=== PATIENT | male | born 1945 | race Caucasian/White ===

== ENCOUNTER 2017-08-19 15:10 | Observation (INO) | payer MEDICARE, SELFPAY ==
[2017-08-19] VITALS (10 sets, daily range): BP systolic 124–154; BP diastolic 58–94; PULSE 74–100; RESP 18–20; TEMP 36.4–37.6; O2SAT 95–100; BMI 20.9
[2017-08-19 12:26] LABS: Bedside Glucose 322 mg/dL (70-110)
--- NOTE | 2017-08-19 13:55 | RAD_ITS ---
STUDY: X-RAY - RIGHT KNEE REASON FOR EXAM: Male, 71 years old. ORIF of patellar fracture TECHNIQUE: 8 view(s) of the knee. COMPARISON: None. FINDINGS: Intraoperative fluoroscopy identifies 2 osseous screws traversing horizontal fracture of the mid pole of the patella. No evidence of hardware failure or loosening. K wires have been placed as well. RAD/Knee 1 or 2 Views IMPRESSION: As above Electronically Signed: Faustino Murry DO at 15:26 EST Tel , Service support ,
[2017-08-19 13:56] LABS: Bedside Glucose 271 mg/dL (70-110)
[2017-08-19] MEDS: Cefazolin 1 GM/50 ML BAG IV ×2 (14:17→21:45)
--- NOTE | 2017-08-19 15:22 | OP.PCM_ITS ---
Report of Operation Date of Procedure: 08/19/17 Pre-Operative Diagnosis: patella fracture right. failure of fixation right patella Post-Operative Diagnosis: same Surgery/Procedure Performed:: revision ORIF right patella Description of Surgical Findings:: Failure of screw fixation right patella Type of Anesthesia:: Spinal Anesthesiologist: Sahil Mallory Estimated Blood Loss (mL): 100 Fluids Replaced: see anesthesia report Description of Procedure: Surgical indications: Suresh had open reduction internal fixation of his patella approximately 2 weeks ago. This was identified to have failed at his first postop visit. Because of the amount displacement this does require revision Implants: Arthrex 4.5 mm cannulated screws ?2 with washer, 1.6 mm K wire ?2, fiber tape ?2 Procedure description: Suresh's greeted in the preoperative area. His right knee was marked with surgical marker. He was then taken or [address]. After adequate anesthesia was obtained and airway was secured and antibiotics were administered a well-padded tourniquet was placed in patient's right lower extremity. The leg was then prepped and draped in usual sterile fashion Surgical timeout was performed and surgery was commenced. Patient's previous incision site was utilized. Dissection was then carried length of the incision and the patella was easily identified. The transverse fracture had failed and this was gapped approximately 2 cm. Using fluoroscopic imaging I reviewed moved both of the previous implanted screws without difficulty. At this point I then cleaned the fibrous tissue and hematoma from the fracture site. This was then irrigated. A point of reduction fracture tenaculum was then applied to the inferior and superior pole of the patella and the patella was then reduced. This was confirmed to be reduced on AP and lateral with fluoroscopic imaging. Once this was reduced to guide pins were then placed in the patella in a retrograde fashion. Appropriate length screws were then opened. For some additional compression and because of the bones poor quality I did decide to use washers and to partially-threaded screws were then advanced across the fracture site. Through these screws I then placed a fiber tape in a figure-of- eight type fashion this was then tied to create a tension band type construct. Because of the previous failure of this construct I then replaced the 2 K wires. They were bent at the inferior pole of the patella and trimmed. I then used an additional fiber tape passed this beneath the K wires and the patellar tendon inferiorly and beneath the K wires and quadriceps tendon superiorly in a [id number] type fashion for additional tension band fixation. Once this was complete final imaging was obtained both AP and lateral. The knee was then irrigated the wound was irrigated and closed in layers. Surgical pedro were placed in the skin. A silver impregnated dressing was applied. Patient was taken to the recovery room in stable condition. Will maintain knee immobilizer and weightbearing as tolerated on the right lower extremity with the knee locked in extension within the immobilizer. The knee immobilizer may be removed for hygiene purposes only. I do not want him doing any type of passive active assistive or active range of motion of the knee. Will allow him to bend from 0-30? at 2 weeks increasing this to 0-60? 4 weeks and progressively increasing that by 10? weekly after that point if the fracture is stable - Complications none known - Admit VTE Documentation VTE Present on Admission: Yes VTE Mechan Device Prophylaxis: SCD's, Thigh High DEAN Hose VTE Pharm Prophylaxis ordered?: Yes
[2017-08-19 15:35] LABS: Bedside Glucose 189 mg/dL (70-110)
[2017-08-19] MEDS: Calcium Carbonate 500 MG Tablet 1000 MG PO (17:44)
[2017-08-19 17:46] LABS: Bedside Glucose 169 mg/dL (70-110)
[2017-08-19] MEDS: Lactated Ringers 1,000 ML 100 ML IV ×2 (18:39→20:27)
[2017-08-19] MEDS: Acetaminophen 325 MG Tablet 650 MG PO (18:45)
[2017-08-19] MEDS: Atorvastatin Calcium 10 MG Tablet PO (21:44)
[2017-08-19 21:50] LABS: Bedside Glucose 90 mg/dL (70-110)
[2017-08-19] MEDS: oxyCODONE 5 MG Tablet PO (21:52)
[2017-08-20 02:48] VITALS: BP 139/70; PULSE 91; RESP 18; TEMP 37.4; O2SAT 98
[2017-08-20] MEDS: Levothyroxine 25 MCG TABLET PO (05:47)
[2017-08-20] MEDS: Cefazolin 1 GM/50 ML BAG IV (05:47)
[2017-08-20] MEDS: Acetaminophen 325 MG Tablet 650 MG PO ×3 (05:47→18:44)
[2017-08-20 06:04] VITALS: TEMP 37.1
--- NOTE | 2017-08-20 06:05 | NURSING ---
pt's forehead clammy. Blood sugar checked and temperature checked. pt states he feels ok. will continue to monitor
[2017-08-20 06:10] LABS: Bedside Glucose 354 mg/dL (70-110)
[2017-08-20] MEDS: Calcium Carbonate 500 MG Tablet 1000 MG PO ×3 (07:48→17:21)
[2017-08-20] MEDS: Aspirin 81 MG TAB.CHEW PO (07:49)
[2017-08-20 08:00] VITALS: BP 138/60; PULSE 94; RESP 18; TEMP 37.1; O2SAT 97
--- NOTE | 2017-08-20 08:13 | PN.ORTHO_ITS ---
Subjective: Patient sitting up in bed eating breakfast. Patient states pain is well- managed. Patient denies chest pain, shortness breath, calf pain, nausea vomiting. Objective: Dressing is clean dry intact. Patient has a large closed decubitus ulcer on the heel of his right leg. A padded dressing was placed intraoperatively. This area was not erythematous. Patient's vitals labs within normal limits. Neurovascular is intact, afebrile. Negative signs and symptoms of DVT. - Physical Exam Oral: Moist Mucosa Neurological: Cranial nerves II-XII grossly intact Psych/Mental Status: Normal Affect Vital Signs Temp Pulse Resp BP Pulse Ox 98.8 F 91 18 139/70 H 98 08/20/17 06:04 08/20/17 02:48 08/20/17 02:48 08/20/17 02:48 08/20/17 02:48 Oxygen Delivery Method Room Air Weight: 70.307 kg Body Mass Index (BMI) 20.9 Finger Stick Blood Glucose 189 Intake and Output for Last 24 Hours 08/18/17 08/19/17 08/20/17 23:59 23:59 23:59 Intake Total 1600 / 1600 1910 / 1910 Output Total 1425 / 1425 Balance 1600 / 1600 485 / 485 POC Glucose 08/20/17 08/19/17 08/19/17 06:03 21:43 17:39 POC Glucose 354 H 90 169 H 08/19/17 08/19/17 08/19/17 15:33 13:48 12:23 POC Glucose 189 H 271 H 322 H Assessment/Plan Status post revision ORIF patella fracture Closed decubitus ulcer to the right heel Plan 1. Continue all pain medications as prescribed 2. Patient can toe-touch weight-bear with knee immobilizer in place with walker. 3. Xarelto as prescribed with aspirin 85 mg as prescribed for postop DVT prophylaxis 4. Encourage incentive spirometry 5. Possible discharge tomorrow to extended-care facility 6. Consult wound management for eval and treatment of decubitus ulcer on right heel
[2017-08-20 08:16] LABS: Bedside Glucose 394 mg/dL (70-110)
--- NOTE | 2017-08-20 10:11 | NURSING ---
wound photo: right heel
[2017-08-20] MEDS: Ascorbic Acid 500 MG Tablet PO (11:09)
--- NOTE | 2017-08-20 11:09 | CASEMGMT ---
Social Work Note Updated by PT - Salud - that pt's daughter was anxious about discharge planning from [facility] and was requesting to speak with SW. Face to face with the pt's daughter, Pao. Pt pleasant and sitting up in chair. Pao is sitting across from him and presents with a very anxious demeanor as evidenced by quick speech and fidgeting. States that she is unsure about payment after Medicare no longer covers. Inform that once his initial 20 days are up there is a $164.50 co-pay/day. Pao expresses understanding. Explain that at that point they would need to decide to privately pay that co-pay, apply for Medicaid, or return home with home health care. Pao states that the pt already has Medicaid and explain that no he does not he has Medicare. She states that she believes he makes too much. Explain to Pao that community Medicaid and SNF Medicaid are different and so are there income requirements. Inform that ultimately if he makes too much or has too many assets he will be paying some out of pocket, but then Medicaid covers the rest. Pao inquires how they apply, and provides her with an application. Once completed they will return to to submit to [facility]. Explain that it would not be fully processed for 4-6 weeks, but there would likely be a pending number within the next few days and that is billable by the correction. Understanding expressed. Pt and Pao made aware that SW is available if additional needs arise. Will continue to follow and assist with discharge planning. Carola Cam, HOWIE MCDONALDW
[2017-08-20] MEDS: Polyethylene Glycol 3350 17 GM PACKET PO (11:10)
[2017-08-20] MEDS: Rivaroxaban 10 MG Tablet PO (11:11)
[2017-08-20 12:26] LABS: Bedside Glucose 353 mg/dL (70-110)
[2017-08-20] MEDS: Glucerna Shake 120 ML LIQUID PO ×3 (14:26→21:36)
[2017-08-20 14:30] VITALS: BP 121/74; PULSE 92; RESP 20; TEMP 36.6; O2SAT 98
[2017-08-20] MEDS: oxyCODONE 5 MG Tablet PO ×2 (14:39→21:35)
--- NOTE | 2017-08-20 16:25 | CASEMGMT ---
This RN CM called and reviewed JONES with patient's POA Anusha Gonzalez. Daughter voices understanding and telephone consent given. Original filed on chart, copy along with MCR inpatient vs observation to patient at this time.
[2017-08-20 16:51] LABS: Bedside Glucose 272 mg/dL (70-110)
[2017-08-20] MEDS: Ondansetron 4 MG/2 ML Vial IV (17:41)
[2017-08-20] MEDS: 0.9% NaCl Peripheral Flush Adult/Peds IV (17:41)
[2017-08-20 20:53] VITALS: BP 123/61; PULSE 90; RESP 16; TEMP 36.7; O2SAT 97
[2017-08-20] MEDS: Atorvastatin Calcium 10 MG Tablet PO (21:35)
[2017-08-20 21:46] LABS: Bedside Glucose 131 mg/dL (70-110)
[2017-08-20] MEDS: Docusate Sodium 100 MG Capsule PO (23:17)
[2017-08-21 02:26] VITALS: BP 131/73; PULSE 85; RESP 18; TEMP 36.8; O2SAT 95
[2017-08-21] MEDS: Levothyroxine 25 MCG TABLET PO (06:35)
[2017-08-21 06:46] LABS: Bedside Glucose 415 mg/dL (70-110)
[2017-08-21] MEDS: Ascorbic Acid 500 MG Tablet PO (09:59)
[2017-08-21 10:00] VITALS: BP 133/54; PULSE 94; RESP 18; TEMP 37.2; O2SAT 99
[2017-08-21] MEDS: Rivaroxaban 10 MG Tablet PO (10:00)
[2017-08-21] MEDS: Aspirin 81 MG TAB.CHEW PO (10:00)
[2017-08-21] MEDS: Polyethylene Glycol 3350 17 GM PACKET PO (10:00)
[2017-08-21] MEDS: Acetaminophen 325 MG Tablet 650 MG PO ×2 (10:11→16:50)
[2017-08-21] MEDS: Docusate Sodium 100 MG Capsule PO (10:11)
[2017-08-21] MEDS: Glucerna Shake 120 ML LIQUID PO ×4 (10:16→22:30)
[2017-08-21 10:56] LABS: Bedside Glucose 390 mg/dL (70-110)
--- NOTE | 2017-08-21 11:26 | CASEMGMT ---
Social Work Note Found Medicaid application on pt's chart. Faxed to [facility] with notification that pt is residing at [facility] and has approximately 7 days left under Medicare. Original provided to family, copy placed on chart and copy placed in SNF packet. SW to continue to follow and assist with discharge planning. Carola Cam, STATEMENT PROCESSOR, STABLE HELPER
[2017-08-21 12:26] LABS: Bedside Glucose 387 mg/dL (70-110)
[2017-08-21] MEDS: oxyCODONE 5 MG Tablet PO (12:34)
--- NOTE | 2017-08-21 14:10 | RAD_ITS ---
STUDY: X-RAY CHEST REASON FOR EXAM: Male, 71 years old. Shortness of breath. Recent surgery. TECHNIQUE: AP and lateral views of the chest. COMPARISON: Comparison is made with prior study dated July 03, 2013. FINDINGS: Hyperinflation. Decreased bronchovascular markings suggestive of emphysematous changes. No acute abnormality is seen. There is no demonstrated pleural abnormality. Sternal cerclage wires are present from a prior sternotomy. Normal mediastinum and louise. Normal visualized pulmonary arteries. There is atherosclerotic calcification of the aortic arch with tortuosity. There are diffuse degenerative changes of the visualized thoracic spine. Status post ORIF of the proximal right humerus. There is no demonstrated abnormality of the visualized soft tissue structures of the upper abdomen. RAD/Chest PA and Lateral IMPRESSION: Hyperinflation. The lungs are clear. Electronically Signed: Harry Guo MD at 14:58 EST Tel [phone], Service support ,
--- NOTE | 2017-08-21 14:10 | EKG12_ITS ---
Test Reason : SOB Blood Pressure : / mmHG Vent. Rate : 083 BPM Atrial Rate : 083 BPM P-R Int : 130 ms QRS Dur : 088 ms QT Int : 428 ms P-R-T Axes : 070 -17 073 degrees QTc Int : 502 ms Normal sinus rhythm Prolonged QT Abnormal ECG Confirmed by DELMY ALVAREZ, JENNY ([id number]), editor department VANESA KOO ([id number]) on 09/02/2017 2:15:34 PM Referred By: Christiano Dorman Confirmed By:JENNY BROCK MD
--- NOTE | 2017-08-21 14:10 | PCM.PN.ORT ---
Subjective: Patient sitting up in bed alert oriented, daughter at her side. Patient states he hurts all over. And does not feel well. Patient denies chest pain shortness of breath. Patient denies any calf pain, however his severe neuropathy of the lower extremities with paresthesias. Objective: Patient sitting up in bed with no obvious respiratory distress, however, patient is taking deep blowing breaths. Patient is a phasic per his norm. Patient has a week a palpable radial pulse, was within normal limits, patient is a 98-99% pulse ox room air. Patient's dressing is clean dry and intact. Patient's glucose has been 350 72+400 today. - Physical Exam General: Alert, Oriented x3 HEENT: PERRLA Oral: Moist Mucosa Psych/Mental Status: Alert and oriented to time, place, person, mood and affect Vital Signs Temp Pulse Resp BP Pulse Ox 98.9 F 94 18 133/54 H 99 08/21/17 10:00 08/21/17 10:00 08/21/17 10:00 08/21/17 10:00 08/21/17 10:00 Oxygen Delivery Method Room Air Weight: 70.3 kg Body Mass Index (BMI) 20.9 Finger Stick Blood Glucose 189 Intake and Output for Last 24 Hours 08/19/17 08/20/17 08/21/17 23:59 23:59 23:59 Intake Total 1600 / 1600 2610 / 2610 950 / 950 Output Total 2325 / 2325 1175 / 1175 Balance 1600 / 1600 285 / 285 -225 / -225 POC Glucose 08/21/17 08/21/17 08/21/17 11:43 09:52 06:39 POC Glucose 387 H 390 H 415 H 08/20/17 08/20/17 21:34 16:43 POC Glucose 131 H 272 H Assessment/Plan Status post revision ORIF patella fracture Closed decubitus ulcer to the right heel Hyperglycemia Plan 1. Continue all pain medications as prescribed 2. Patient can toe-touch weight-bear with knee immobilizer in place with walker. 3. Xarelto as prescribed with aspirin 85 mg as prescribed for postop DVT prophylaxis 4. Encourage incentive spirometry 5. Possible discharge tomorrow to extended-care facility 6. Consult wound management for eval and treatment of decubitus ulcer on right heel 7. Medicine consult, for medical evaluation of hyperglycemia.
[2017-08-21 15:05] LABS: International Normalized Ratio 1.6; Prothrombin Time (Protime)PT. 18.1 SECONDS (11.7-14.9)
[2017-08-21 15:25] LABS: Absolute Lymphocyte Count 1.68 X10^3/ul (0.83-4.51); Absolute Neutrophil Count 9.4 X10^3/uL (2.0-7.7); Basophil# 0.03 X10^3/uL; Basophil% 0.2 % (0-1); Eosinophil# 0.06 X10^3/uL; Eosinophils% 0.5 % (0-5); Hematocrit 34.8 % (40-54); Hemoglobin 11.1 g/dl (13.0-16.5); Lymphocyte # 1.68 X10^3/ul (4.0); Lymphocyte % 13.7 % (19-41); Mean Corp Hgb Conc 31.9 g/gl (32-36); Mean Corpuscular Hgb 30.2 pg (27.0-32.0); Mean Corpuscular Volume 94.8 fL (80-94); Mean Platelet Vol. 8.8 fl (6.2-12.0); Monocyte# 1.03 X10^3/uL; Monocyte% 8.4 % (0-10); Platelet Count 586 K/mm3 (150-450); RBC Distribution Width CV 13.3 % (11.6-14.6); RBC Distribution Width SD 45.4 fl (35.1-43.9); Red Blood Count 3.67 M/mm3 (4.6-6.2); White Blood Count 12.2 K/mm3 (4.4-11.0)
[2017-08-21 15:26] LABS: POSITIVE COUNT NO; POSITIVE DIFFERENTIAL NO; POSITIVE MORPHOLOGY NO
[2017-08-21 15:30] VITALS: BP 116/52; PULSE 76; RESP 18; TEMP 36.7; O2SAT 97
[2017-08-21 15:36] LABS: ALB/GLOB Ratio 0.7 RATIO (0.9-2.4); AST(SGOT) 7 U/L (15-37); Alanine Aminotransfer ALT/SGPT 12 U/L (16-61); Albumin, Serum 2.9 g/dL (3.2-5.0); Alkaline Phosphatase 191 U/L (45-117); Anion Gap 10 (5-15); BUN 23 mg/dL (7-18); BUN/Creat Ratio 28.1 RATIO (10-20); Calcium,Total 8.4 mg/dL (8.5-10.1); Chloride 103 mmol/L (98-107); Creatinine, Serum 0.82 mg/dL (0.70-1.30); EST Glomerular Filtration Rate 99 mL/min (>60); Est Glom Filt Rate - Afr Amer 120 mL/min (>60); Estimated Creatinine Clearance 84.54 ml/min; Glucose 254 mg/dL (70-110); Magnesium 2.2 mg/dL (1.6-2.6); Potassium 4.4 mmol/L (3.5-5.1); Protein, Total 6.9 g/dL (6.4-8.2); Sodium Level 137 mmol/L (136-145)
[2017-08-21 16:02] VITALS: PULSE 80; RESP 18
[2017-08-21 16:02] LABS: CPK Total, Creatine Kinase 49 U/L (39-308)
[2017-08-21] MEDS: Ipratropium/Albuterol Sulfate 3 ML AMPUL.NEB INHALATION ×2 (16:02→19:10)
[2017-08-21] MEDS: Calcium Carbonate 500 MG Tablet 1000 MG PO (16:48)
[2017-08-21 16:56] LABS: Bedside Glucose 220 mg/dL (70-110)
[2017-08-21 17:16] LABS: Bedside Glucose 333 mg/dL (70-110)
--- NOTE | 2017-08-21 18:01 | CON.PCM_ITS ---
Problem List (1) Shortness of breath Status: Acute (2) Diabetes mellitus type 2 with complications, uncontrolled Status: Chronic (3) Diabetic neuropathy Status: Chronic (4) Right patella fracture Status: Acute (5) Right humeral fracture Status: Acute (6) CAD (coronary artery disease) Status: Chronic Comment: expressive aphasia (7) CVA, old, aphasia Status: Chronic (8) Constipation Status: Chronic Reason for Consult Date of Consultation: 08/21/17 Reason for Consultation: shortness of breath and hyperglycemia History of Present Illness: The patient is a 71 year old M with multiple comorbidities including diabetes mellitus type 2 complicated with bilateral lower extremity peripheral neuropathy , old ischemic stroke with residual aphasia about 11 years ago, coronary artery disease status post CABG and chronic constipation was admitted for revision for patella fracture. Earlier, patient had right patella fracture and right humerus fracture status on 08/02/2017 post ORIF on 08/04/2017 was sent to rehab but readmitted for recurrence of patella fracture. This time patient had revision of patella ORIF done. I was called in the morning for shortness of breath and hypoglycemia. Patient has history of about 40 packs years of smoking. He does not have diagnosis of COPD and not on inhalers. Basic lab tests, EKG, troponin and chest x-ray was ordered in the morning. Chest x-ray shows hyperinflation and decreased bronchovascular markings suggestive of emphysematous changes. EKG shows normal sinus rhythm with prolonged QTC 502 ms but no significant change from previous EKG on August 02, 2017. Patient denied chest pain. Accu-Cheks blood sugar was in high 300s-400s. In afternoon, patient is not short of breath. Denies chest pain. Past Medical History Past Medical History (Chronic Problems): Chronic Problems CAD (coronary artery disease) (Chronic) expressive aphasia CVA, old, aphasia (Chronic) Constipation (Chronic) Diabetes mellitus type 2 with complications, uncontrolled (Chronic) Diabetic neuropathy (Chronic) Allergies No Known Allergies Allergy (Verified 08/16/17 11:22) Home Medications: Ambulatory Orders Medication Instructions Recorded Aspirin [Aspirin, Baby] 81 mg PO DAILY@0800 08/02/17 Atorvastatin Calcium [Lipitor] 10 mg PO QHS 08/02/17 Calcium Carbonate [Tums] 1,000 mg PO TIDCM 08/02/17 Insulin Aspart [Novolog Flexpen] 15 units SC LUNCH 08/02/17 Insulin Aspart [Novolog Flexpen] 20 units SC BREAKFAST 08/02/17 Insulin Aspart [Novolog Flexpen] 35 units SC DINNER 08/02/17 Insulin Detemir [Levemir FlexPen] 20 mg SQ BID 08/02/17 Levothyroxine [Synthroid] 25 mcg PO DAILY 08/02/17 Acetaminophen [Tylenol Tablet] 650 mg PO Q6H PRN PRN tablet 08/06/17 Oxycodone HCl/Acetaminophen 1 tab PO Q6H PRN PRN #30 tab 08/06/17 [Percocet 10-325 mg Tablet] Polyethylene Glycol 3350 [Miralax] 17 gm PO DAILY packet 08/06/17 Rivaroxaban [Xarelto] 10 mg PO DAILY #14 tab 08/06/17 Arginine/Ascorbate Sod/Yan AC 1 each PO DAILY 08/16/17 [Arginaid Powder] Ascorbic Acid [Vitamin C] 500 mg PO DAILY 08/16/17 Zinc Gluconate [Zinc] 40 mg PO DAILY 08/16/17 Surgical History: coronary bypass surgery, - - penile implant Psychiatric History: No pertinent psych hx Smoking Status: Former smoker - *Family History Maternal History Items: Stroke Paternal History Items: Heart Disease Review of Systems Constitutional: Denies: Chills, Fever, Weight Change HEENT: Denies: Head Aches, Sinus Congestion, Sinus Drainage Cardiovascular: Denies: Chest Pain, Palpitations Respiratory: Reports: Shortness of Breath. Denies: Cough, Shortness of breath at rest, Sputum production Gastrointestinal: Denies: Abdominal Pain, Nausea, Vomiting Genitourinary: Denies: Dysuria Musculoskeletal: Reports: Joint Pain, Joint swelling, Joint Tenderness Skin: Denies: Rash, Wounds Neurological: Reports: Balance problems. Denies: Focal weakness, Numbness, Tingling Psychiatric: Denies: Anxiety, Depression, Homicidal Ideations, Suicidal Ideations Hematologic/ Lymphatic: Denies: Easy Bruising, Easy Bleeding Patient Problems: Active and Suspected Problems Shortness of breath (Acute) - Physical Exam General: Alert, Oriented x3, Cooperative HEENT: Atraumatic, PERRLA, EOMI, Normocephalic Neck: Supple, No JVD, Negative Carotid Bruits Lungs: No rhonchi, No wheeze, No rales, Diminished - Diffuse decrease in air entry bilateral Cardiovascular: Regular rate, Regular Rhythm, Normal S1, Normal S2, Murmur - Colic murmur present over aortic valve and LLSB, - - CABG scar Abdomen: Bowel Sounds Present, Soft, Non Tender, Non-Distended Extremities: No edema, Capillary Refill Less than 3 Seconds Skin: Ulcer/ Wound - Eschar present over left heel, suggestive of unstageable decubitus ulcer Musculoskeletal: Arthritic Changes, - - Right patella under bandage. Right upper arm surgical wound healthy. No discharge Neurological: Cranial nerves II-XII grossly intact Psych/Mental Status: Normal Affect, Appropriate Vital Signs Temp Pulse Resp BP Pulse Ox 98.1 F 80 18 116/52 L 97 08/21/17 15:30 08/21/17 16:02 08/21/17 16:02 08/21/17 15:30 08/21/17 15:30 Oxygen Delivery Method Room Air Weight: 154 lb 15.759 oz Body Mass Index (BMI) 20.9 Finger Stick Blood Glucose 189 Intake and Output for Last 24 Hours 08/19/17 08/20/17 08/21/17 23:59 23:59 23:59 Intake Total 1600 / 1600 2610 / 2610 950 / 950 Output Total 2325 / 2325 1175 / 1175 Balance 1600 / 1600 285 / 285 -225 / -225 Laboratory Tests Past 24 Hrs 08/21/17 08/21/17 08/21/17 14:46 14:46 14:46 WBC 12.2 H RBC 3.67 L Hgb 11.1 L Hct 34.8 L MCV 94.8 H MCH 30.2 MCHC 31.9 L RDW 13.3 RDW Differential 45.4 H Plt Count 586 H MPV 8.8 Immature Gran % (Auto) 0.200 Neut % (Auto) 77.0 H Lymph % (Auto) 13.7 L [place] % (Auto) 8.4 Eos % (Auto) 0.5 Baso % (Auto) 0.2 Absolute Neuts (auto) 9.4 H Absolute Lymphs (auto) 1.68 Total Counted Not Reportable PT 18.1 H INR 1.6 Sodium 137 Potassium 4.4 Chloride 103 Carbon Dioxide 24.0 Anion Gap 10 BUN 23 H Creatinine 0.82 Estim Creat Clear Calc 84.54 Est GFR (MDRD) Af Amer 120 Est GFR (MDRD) Non-Af 99 BUN/Creatinine Ratio 28.1 H Glucose 254 H Calcium 8.4 L Magnesium 2.2 Total Bilirubin 1.00 AST 7 L ALT 12 L Alkaline Phosphatase 191 H Total Creatine Kinase Troponin I < 0.02 Total Protein 6.9 Albumin 2.9 L Globulin 4.0 Albumin/Globulin Ratio 0.7 L 08/21/17 14:46 WBC RBC Hgb Hct MCV MCH MCHC RDW RDW Differential Plt Count MPV Immature Gran % (Auto) Neut % (Auto) Lymph % (Auto) [place] % (Auto) Eos % (Auto) Baso % (Auto) Absolute Neuts (auto) Absolute Lymphs (auto) Total Counted PT INR Sodium Potassium Chloride Carbon Dioxide Anion Gap BUN Creatinine Estim Creat Clear Calc Est GFR (MDRD) Af Amer Est GFR (MDRD) Non-Af BUN/Creatinine Ratio Glucose Calcium Magnesium Total Bilirubin AST ALT Alkaline Phosphatase Total Creatine Kinase 49 Troponin I Total Protein Albumin Globulin Albumin/Globulin Ratio POC Glucose 08/21/17 08/21/17 08/21/17 16:59 15:34 11:43 POC Glucose 333 H 220 H 387 H 08/21/17 08/21/17 08/20/17 09:52 06:39 21:34 POC Glucose 390 H 415 H 131 H Assessment/Plan Active and Suspected Problems Shortness of breath (Acute) The patient is a 71 year old M with multiple comorbidities including diabetes mellitus type 2 complicated with bilateral lower extremity peripheral neuropathy , old ischemic stroke with residual aphasia about 11 years ago, coronary artery disease status post CABG and chronic constipation was admitted for revision for patella fracture. Earlier, patient had right patella fracture and right humerus fracture status on 08/02/2017 post ORIF on 08/04/2017 was sent to rehab but readmitted for recurrence of patella fracture. This time patient had revision of patella ORIF done. I was called in the morning for shortness of breath and hypoglycemia. Patient has history of about 40 packs years of smoking. He does not have diagnosis of COPD and not on inhalers. Basic lab tests, EKG, troponin and chest x-ray was ordered in the morning. Chest x-ray shows hyperinflation and decreased bronchovascular markings suggestive of emphysematous changes. EKG shows normal sinus rhythm with prolonged QTC 502 ms but no significant change from previous EKG on August 02, 2017. Patient denied chest pain. Accu-Cheks blood sugar was in high 300s-400s. In afternoon, patient is not short of breath. Denies chest pain. 1. Acute shortness of breath, etiology unclear but suspect COPD based on x-ray changes: Started on albuterol inhaler as needed and Advair low-dose. Patient will need outpatient PFT to further assess COPD/emphysema. Currently stable not in exacerbation. Patient does not have chest pain. Troponin is normal. EKG no changes. 2. Diabetes mellitus type 2 with hyperglycemia complicated with bilateral lower extremities peripheral neuropathy: Patient Levemir 20 units twice daily and home dose of NovoLog insulin resumed. On Accu-Cheks before meals and at bedtime and cover with NovoLog sliding scale. 3. Revision of right patella fracture status post ORIF and recent right humerus fracture status post ORIF: As per [facility]. On Xarelto 10 mg daily for DVT prophylaxis. 4. Chronic constipation: Patient had hard bowel movement yesterday. Enema ordered. On Dulcolax suppository daily. On oral stool softener Code Visit Inpatient E&M: 99057 Init Hosp L3
[2017-08-21] MEDS: Bisacodyl 10 MG Suppository RECTAL (18:58)
[2017-08-21 19:10] VITALS: PULSE 90; RESP 20
[2017-08-21 19:45] VITALS: BP 122/46; PULSE 107; RESP 20; TEMP 36.4; O2SAT 97
[2017-08-21] MEDS: Atorvastatin Calcium 10 MG Tablet PO (22:31)
[2017-08-21 22:41] LABS: Bedside Glucose 149 mg/dL (70-110)
[2017-08-22 01:45] VITALS: BP 117/50; PULSE 88; RESP 20; TEMP 36.7; O2SAT 95
[2017-08-22 02:47] LABS: Bedside Glucose 91 mg/dL (70-110)
[2017-08-22] MEDS: Levothyroxine 25 MCG TABLET PO (06:16)
[2017-08-22 06:58] VITALS: PULSE 90; RESP 18; O2SAT 97
[2017-08-22] MEDS: Ipratropium/Albuterol Sulfate 3 ML AMPUL.NEB INHALATION ×3 (06:58→15:46)
--- NOTE | 2017-08-22 07:10 | NURSING ---
Pt's blood sugar 75 when checked this AM. Pt refused orange juice so apple juice given and when blood sugar rechecked came back at 133.
[2017-08-22 07:11] LABS: Bedside Glucose 75 mg/dL (70-110)
[2017-08-22 07:11] LABS: Bedside Glucose 133 mg/dL (70-110)
--- NOTE | 2017-08-22 07:26 | PCM.DC.ORTHO ---
Discharge Diet: 1800 Calorie Control Diet Discharge Activity: - - WBAT right leg with knee immobilizer knee immobilizer may be removed for sponge bath but knee remains straight sling for comfort NWB right UE PROM/AROM of right UE ok, no PRE May shower in (days): 1 Ice area for (Minutes): 20 - Ice area for 20 minutes each hour while awake Weight Bearing Status: Weight bearing as tolerated Keep extremity elevated above heart level: Operative Extremity Call your doctor if your incision/area has: Continuous Slow Oozing, Sudden Increased Bleeding, Increased Pain/ Swelling, Increased Redness, Foul Smelling Discharge Call your doctor if you observe: Fever of 101 or Higher, Coldness, Increased Pain, Numbness or Tingling, Change in Color Change Dressing in (Days):: 7 Cleanse incision/area with: Soap & Water Allergies/Adverse Reactions: Allergies No Known Allergies Allergy (Verified 08/16/17 11:22) Medications to take at Discharge Aspirin [Aspirin, Baby] 81 mg PO DAILY@0800 08/02/17 Atorvastatin Calcium [Lipitor] 10 mg PO QHS 08/02/17 Calcium Carbonate [Tums] 1,000 mg PO TIDCM 08/02/17 Insulin Aspart [Novolog Flexpen] 15 units SC LUNCH 08/02/17 Insulin Aspart [Novolog Flexpen] 20 units SC BREAKFAST 08/02/17 Insulin Aspart [Novolog Flexpen] 35 units SC DINNER 08/02/17 Insulin Detemir [Levemir FlexPen] 20 mg SQ BID 08/02/17 Levothyroxine [Synthroid] 25 mcg PO DAILY 08/02/17 Acetaminophen [Tylenol Tablet] 650 mg PO Q6H PRN PRN tablet 08/06/17 Polyethylene Glycol 3350 [Miralax] 17 gm PO DAILY packet 08/06/17 Rivaroxaban [Xarelto] 10 mg PO DAILY #14 tab 08/06/17 Arginine/Ascorbate Sod/Yan AC [Arginaid Powder] 1 each PO DAILY 08/16/17 Ascorbic Acid [Vitamin C] 500 mg PO DAILY 08/16/17 Zinc Gluconate [Zinc] 40 mg PO DAILY 08/16/17 Acetaminophen [Tylenol Tablet] 650 mg PO Q6H PRN PRN tablet 08/22/17 Albuterol Aerosols [Ventolin Aerosols] 2.5 mg INHALATION Q2H PRN PRN vial.neb. 02/01/18 Albuterol Aerosols [Ventolin Aerosols] 2.5 mg INHALATION Q6HWA.RT vial.neb. 08/22/17 Bisacodyl [Dulcolax] 10 mg RECTAL DAILY suppos. 08/22/17 Budesonide Aerosol [Pulmicort Respules] 0.5 mg INHALATION Q12H.RT ampul.neb. 08/22/17 Docusate Sodium [Colace] 100 mg PO BID PRN PRN capsule 08/22/17 Glucerna Shake 120 ml PO 4X/DAY liquid 08/22/17 Insulin Aspart [Novolog Flexpen] See Protocol SC ACHS flexpen 08/22/17 Insulin Detemir [Levemir FlexPen] 20 units SC BID insuln.pen 08/22/17 Ipratropium/Albuterol Sulfate [Duoneb] 3 ml INHALATION Q4HWA.RT ampul.neb 08/22/17 Na Phos,M-B/Na Phos,Di-Ba [Fleet Enema] 1 bottle RECTAL X1 PRN enema 08/22/17 Ondansetron [Zofran] 4 mg IV Q8H PRN PRN vial 08/22/17 Oxycodone [Oxyir] 5 - 10 mg PO Q4H PRN PRN #56 tablet 08/22/17 Zinc Sulfate (50mg elemental) [Zinc Sulfate] 220 mg PO DAILY capsule 08/22/17 The following prescriptions were given: Oxycodone [Oxyir] 5 - 10 mg PO Q4H PRN PRN #56 tablet PRN Reason: Severe Pain (6-10/10) Please Follow Up With: Christiano Dorman DO When: 2 weeks
--- NOTE | 2017-08-22 07:30 | DCINST_ITS ---
Discharge Diet: 1800 Calorie Control Diet Discharge Activity: - - WBAT right leg with knee immobilizer knee immobilizer may be removed for sponge bath but knee remains straight sling for comfort NWB right UE PROM/AROM of right UE ok, no PRE May shower in (days): 1 Ice area for (Minutes): 20 - Ice area for 20 minutes each hour while awake Weight Bearing Status: Weight bearing as tolerated Keep extremity elevated above heart level: Operative Extremity Call your doctor if your incision/area has: Continuous Slow Oozing, Sudden Increased Bleeding, Increased Pain/ Swelling, Increased Redness, Foul Smelling Discharge Call your doctor if you observe: Fever of 101 or Higher, Coldness, Increased Pain, Numbness or Tingling, Change in Color Change Dressing in (Days):: 7 Cleanse incision/area with: Soap & Water Allergies/Adverse Reactions: Allergies No Known Allergies Allergy (Verified 08/16/17 11:22) Medications to take at Discharge Aspirin [Aspirin, Baby] 81 mg PO DAILY@0800 08/02/17 Atorvastatin Calcium [Lipitor] 10 mg PO QHS 08/02/17 Calcium Carbonate [Tums] 1,000 mg PO TIDCM 08/02/17 Insulin Aspart [Novolog Flexpen] 15 units SC LUNCH 08/02/17 Insulin Aspart [Novolog Flexpen] 20 units SC BREAKFAST 08/02/17 Insulin Aspart [Novolog Flexpen] 35 units SC DINNER 08/02/17 Insulin Detemir [Levemir FlexPen] 20 mg SQ BID 08/02/17 Levothyroxine [Synthroid] 25 mcg PO DAILY 08/02/17 Acetaminophen [Tylenol Tablet] 650 mg PO Q6H PRN PRN tablet 08/06/17 Polyethylene Glycol 3350 [Miralax] 17 gm PO DAILY packet 08/06/17 Rivaroxaban [Xarelto] 10 mg PO DAILY #14 tab 08/06/17 Arginine/Ascorbate Sod/Yan AC [Arginaid Powder] 1 each PO DAILY 08/16/17 Ascorbic Acid [Vitamin C] 500 mg PO DAILY 08/16/17 Zinc Gluconate [Zinc] 40 mg PO DAILY 08/16/17 Acetaminophen [Tylenol Tablet] 650 mg PO Q6H PRN PRN tablet 08/22/17 Albuterol Aerosols [Ventolin Aerosols] 2.5 mg INHALATION Q2H PRN PRN vial.neb. 02/01/18 Albuterol Aerosols [Ventolin Aerosols] 2.5 mg INHALATION Q6HWA.RT vial.neb. 08/08 Bisacodyl [Dulcolax] 10 mg RECTAL DAILY suppos. 08/22/17 Budesonide Aerosol [Pulmicort Respules] 0.5 mg INHALATION Q12H.RT ampul.neb. Docusate Sodium [Colace] 100 mg PO BID PRN PRN capsule 08/22/17 Glucerna Shake 120 ml PO 4X/DAY liquid 08/22/17 Insulin Aspart [Novolog Flexpen] See Protocol SC ACHS flexpen 08/22/17 Insulin Detemir [Levemir FlexPen] 20 units SC BID insuln.pen 08/22/17 Ipratropium/Albuterol Sulfate [Duoneb] 3 ml INHALATION Q4HWA.RT ampul.neb 08/22 Na Phos,M-B/Na Phos,Di-Ba [Fleet Enema] 1 bottle RECTAL X1 PRN enema 08/22/17 Ondansetron [Zofran] 4 mg IV Q8H PRN PRN vial 08/22/17 Oxycodone [Oxyir] 5 - 10 mg PO Q4H PRN PRN #56 tablet 08/22/17 Zinc Sulfate (50mg elemental) [Zinc Sulfate] 220 mg PO DAILY capsule 08/22/17 The following prescriptions were given: Oxycodone [Oxyir] 5 - 10 mg PO Q4H PRN PRN #56 tablet PRN Reason: Severe Pain (6-10/10) Please Follow Up With: Christiano Dorman DO When: 2 weeks
--- NOTE | 2017-08-22 07:40 | PCM.DC.BLA ---
Discharge Summary Date of Admission: 08/19/17 Date of Discharge: 08/22/17 Summary: Prior and had revision of his patella fracture. He was initially placed on observation overnight however he developed significant shortness of breath hyperglycemia and difficulty with constipation. He was then admitted to the hospital and hospitalist was consulted. He appears to be doing well and anticipate that point to get him transferred to nursing home facility today. Patient was placed on DVT prophylaxis with mechanical and chemical he was also evaluated by physical and Occupational Therapy. Please see discharge instructions and patient will follow-up with me in office in approximately 2 weeks
[2017-08-22 07:45] VITALS: BP 142/74; PULSE 94; RESP 18; TEMP 36.8; O2SAT 100
[2017-08-22] MEDS: Aspirin 81 MG TAB.CHEW PO (08:18)
[2017-08-22] MEDS: oxyCODONE 5 MG Tablet PO ×2 (08:18→15:32)
[2017-08-22] MEDS: Ascorbic Acid 500 MG Tablet PO (08:19)
[2017-08-22] MEDS: Polyethylene Glycol 3350 17 GM PACKET PO (08:19)
[2017-08-22] MEDS: Calcium Carbonate 500 MG Tablet 1000 MG PO ×2 (08:19→11:29)
[2017-08-22] MEDS: Rivaroxaban 10 MG Tablet PO (08:20)
[2017-08-22] MEDS: Glucerna Shake 120 ML LIQUID PO ×2 (08:26→13:24)
--- NOTE | 2017-08-22 09:38 | PCM.PN.HOSP ---
Patient Problems: Active and Suspected Problems Shortness of breath (Acute) Objective: GENERAL: cooperative HEENT: Clear conjunctiva, NECK; supple, normal thyroid, CHEST: Clear to auscultation bilaterally, HEART: Regular S1 S2, no audible murmurs ABDOMEN: soft, non-tender, normoactive bowel sounds, RECTAL: deferred EXTREMITIES: No edema, no clubbing, no cyanosis. SENIOR HARDWARE DESIGN ENGINEER: Awake, with expressive aphasia SKIN: No rash Vitals/I&O's: Vital Signs Temp Pulse Resp BP Pulse Ox 98.2 F 94 18 142/74 H 100 08/22/17 07:45 08/22/17 07:45 08/22/17 07:45 08/22/17 07:45 08/22/17 07:45 Oxygen Delivery Method Room Air Weight: 70.3 kg Body Mass Index (BMI) 20.9 Finger Stick Blood Glucose 189 Intake and Output for Last 24 Hours 08/20/17 08/21/17 08/22/17 23:59 23:59 23:59 Intake Total 2610 / 2610 1350 / 1350 800 / 800 Output Total 2325 / 2325 1425 / 1425 275 / 275 Balance 285 / 285 -75 / -75 525 / 525 Laboratory Results 08/21/17 09:52: POC Glucose 390 H 08/21/17 11:43: POC Glucose 387 H 08/21/17 14:46: WBC 12.2 H, RBC 3.67 L, Hgb 11.1 L, Hct 34.8 L, MCV 94.8 H, MCH 30.2, MCHC 31.9 L, RDW 13.3, RDW Differential 45.4 H, Plt Count 586 H, MPV 8.8, Immature Gran % (Auto) 0.200, Neut % (Auto) 77.0 H, Lymph % (Auto) 13.7 L, [place] % (Auto) 8.4, Eos % (Auto) 0.5, Baso % (Auto) 0.2, Absolute Neuts (auto) 9.4 H, Absolute Lymphs (auto) 1.68, Total Counted Not Reportable 08/21/17 14:46: Sodium 137, Potassium 4.4, Chloride 103, Carbon Dioxide 24.0, Anion Gap 10, BUN 23 H, Creatinine 0.82, Estim Creat Clear Calc 84.54, Est GFR (MDRD) Af Amer 120, Est GFR (MDRD) Non-Af 99, BUN/Creatinine Ratio 28.1 H, Glucose 254 H, Calcium 8.4 L, Magnesium 2.2, Total Bilirubin 1.00, AST 7 L, ALT 12 L, Alkaline Phosphatase 191 H, Troponin I < 0.02, Total Protein 6.9, Albumin 2.9 L, Globulin 4.0, Albumin/Globulin Ratio 0.7 L 08/21/17 14:46: PT 18.1 H, INR 1.6 08/21/17 14:46: Total Creatine Kinase 49 08/21/17 15:34: POC Glucose 220 H 08/21/17 16:59: POC Glucose 333 H 08/21/17 22:32: POC Glucose 149 H 08/22/17 02:24: POC Glucose 91 08/22/17 06:23: POC Glucose 75 08/22/17 07:06: POC Glucose 133 H Current Medications Acetaminophen (Tylenol) 650 mg PO Q6H PRN PRN PRN Reason: Mild Pain (1-3)/Temp > 100.7 F Last Admin: 08/21/17 16:50 Dose: 650 mg Hydrocodone Bitart/Acetaminophen ([place] 5mg-325mg) 1 - 2 tablet PO Q6H PRN PRN PRN Reason: Mild-moderate pain (scale 1-5) Albuterol Sulfate (Ventolin Aerosols) 2.5 mg INHALATION Q2H PRN PRN PRN Reason: Shortness of breath/wheezing Albuterol Sulfate (Ventolin Aerosols) 2.5 mg INHALATION Q6HWA.RT [facility] Albuterol/Ipratropium (Duoneb) 3 ml INHALATION Q4HWA.RT [facility] Last Admin: 08/22/17 06:58 Dose: 3 ml Ascorbic Acid (Vitamin C) 500 mg PO DAILY [facility] Last Admin: 08/22/17 08:19 Dose: 500 mg Aspirin (Aspirin, Baby) 81 mg PO DAILY@0800 [facility] Last Admin: 08/22/17 08:18 Dose: 81 mg Atorvastatin Calcium (Lipitor) 10 mg PO QHS [facility] Last Admin: 08/21/17 22:31 Dose: 10 mg Bisacodyl (Dulcolax) 10 mg RECTAL DAILY [facility] Last Admin: 08/22/17 08:24 Dose: Not Given Budesonide (Pulmicort Aerosol) 0.5 mg INHALATION Q12H.RT [facility] Calcium Carbonate (Tums) 1,000 mg PO TIDCM [facility] Last Admin: 08/22/17 08:19 Dose: 1,000 mg Dextrose (D50w Syringe) 0 gm IV X1 PRN; Protocol PRN Reason: Hypoglycemia Docusate Sodium (Colace) 100 mg PO BID PRN PRN PRN Reason: constipation Last Admin: 08/21/17 10:11 Dose: 100 mg Glucagon () 1 mg IM .X1 PRN PRN Reason: Hypoglycemia Insulin Aspart (Novolog Flexpen (Bkc)) 15 units SC LUNCH [facility] Last Admin: 08/21/17 11:46 Dose: 15 units Insulin Aspart (Novolog Flexpen (Bkc)) 20 units SC BREAKFAST [facility] Last Admin: 08/22/17 09:17 Dose: 20 units Insulin Aspart (Novolog Flexpen (Bkc)) 35 units SC DINNER [facility] Last Admin: 08/21/17 17:07 Dose: 35 units Insulin Aspart (Novolog Flexpen (Bkc)) 0 units SC ACHS [facility] PRN Reason: Protocol Last Admin: 08/22/17 08:14 Dose: Not Given Insulin Detemir (Levemir (Bkc)) 20 units SC BID [facility] Last Admin: 08/22/17 09:18 Dose: 20 units Levothyroxine Sodium (Synthroid) 25 mcg PO DAILY@0600 [facility] Last Admin: 08/22/17 06:16 Dose: 25 mcg Nutritional Formula (Lactose Free) (Glucerna Shake) 120 ml PO 4X/DAY [facility] Last Admin: 08/22/17 08:26 Dose: 120 ml Ondansetron HCl (Zofran) 4 mg IV Q8H PRN PRN PRN Reason: NAUSEA Last Admin: 08/20/17 17:41 Dose: 4 mg Oxycodone HCl (Oxyir) 5 - 10 mg PO Q4H PRN PRN PRN Reason: SEVERE PAIN (6-10/10) Last Admin: 08/22/17 08:18 Dose: 5 mg Polyethylene Glycol (Miralax) 17 gm PO DAILY [facility] Last Admin: 08/22/17 08:19 Dose: 17 gm Rivaroxaban (Xarelto) 10 mg PO DAILY [facility] Last Admin: 08/22/17 08:20 Dose: 10 mg Sodium Biphosphate/Sodium Phosphate (Fleet Enema) 1 bottle RECTAL X1 PRN PRN Reason: If no BM after soapsuds enema Sodium Chloride () 5 - 30 ml IV UD PRN PRN Reason: SALINE FLUSH Last Admin: 08/20/17 17:41 Dose: 10 ml Zinc Sulfate (Zinc Sulfate) 220 mg PO DAILY [facility] Last Admin: 08/22/17 08:20 Dose: 220 mg Assessment/Plan Active and Suspected Problems Shortness of breath (Acute) Patient is a 71-year-old gentleman with multiple comorbidities admitted by the orthopedic service for revision of patella fracture underwent ORIF on 08/21/2017 1. S/P revision of patella fracture underwent ORIF on 08/21/2017 2. History of previous ischemic stroke with residual aphasia 3. CAD status post CABG 4. Diabetes mellitus type 2 5. Essential Hypertension-blood pressure controlled, home medications continued with dose adjustment as needed 6. Dyslipidemia-patient is on statin therapy, continued at home dose 7. History of right carotid endarterectomy 8. DVT prophylaxis on Xarelto Code Visit Inpatient E&M: 71167 Subs Hosp L2
--- NOTE | 2017-08-22 09:44 | PN_ITS ---
Patient Problems: Active and Suspected Problems Shortness of breath (Acute) Objective: GENERAL: cooperative HEENT: Clear conjunctiva, NECK; supple, normal thyroid, CHEST: Clear to auscultation bilaterally, HEART: Regular S1 S2, no audible murmurs ABDOMEN: soft, non-tender, normoactive bowel sounds, RECTAL: deferred EXTREMITIES: No edema, no clubbing, no cyanosis. SCIENTIFIC TECHNICAL WRITER: Awake, with expressive aphasia SKIN: No rash Vitals/I&O's: Vital Signs Temp Pulse Resp BP Pulse Ox 98.2 F 94 18 142/74 H 100 08/22/17 07:45 08/22/17 07:45 08/22/17 07:45 08/22/17 07:45 08/22/17 07:45 Oxygen Delivery Method Room Air Weight: 70.3 kg Body Mass Index (BMI) 20.9 Finger Stick Blood Glucose 189 Intake and Output for Last 24 Hours 08/20/17 08/21/17 08/22/17 23:59 23:59 23:59 Intake Total 2610 / 2610 1350 / 1350 800 / 800 Output Total 2325 / 2325 1425 / 1425 275 / 275 Balance 285 / 285 -75 / -75 525 / 525 Laboratory Results 08/21/17 09:52: POC Glucose 390 H 08/21/17 11:43: POC Glucose 387 H 08/21/17 14:46: WBC 12.2 H, RBC 3.67 L, Hgb 11.1 L, Hct 34.8 L, MCV 94.8 H, MCH 30.2, MCHC 31.9 L, RDW 13.3, RDW Differential 45.4 H, Plt Count 586 H, MPV 8.8, Immature Gran % (Auto) 0.200, Neut % (Auto) 77.0 H, Lymph % (Auto) 13.7 L, [place] % (Auto) 8.4, Eos % (Auto) 0.5, Baso % (Auto) 0.2, Absolute Neuts (auto) 9.4 H, Absolute Lymphs (auto) 1.68, Total Counted Not Reportable 08/21/17 14:46: Sodium 137, Potassium 4.4, Chloride 103, Carbon Dioxide 24.0, Anion Gap 10, BUN 23 H, Creatinine 0.82, Estim Creat Clear Calc 84.54, Est GFR ( MDRD) Af Amer 120, Est GFR (MDRD) Non-Af 99, BUN/Creatinine Ratio 28.1 H, Glucose 254 H, Calcium 8.4 L, Magnesium 2.2, Total Bilirubin 1.00, AST 7 L, ALT 12 L, Alkaline Phosphatase 191 H, Troponin I < 0.02, Total Protein 6.9, Albumin 2.9 L, Globulin 4.0, Albumin/Globulin Ratio 0.7 L 08/21/17 14:46: PT 18.1 H, INR 1.6 08/21/17 14:46: Total Creatine Kinase 49 08/21/17 15:34: POC Glucose 220 H 08/21/17 16:59: POC Glucose 333 H 08/21/17 22:32: POC Glucose 149 H 08/22/17 02:24: POC Glucose 91 08/22/17 06:23: POC Glucose 75 08/22/17 07:06: POC Glucose 133 H Current Medications Acetaminophen (Tylenol) 650 mg PO Q6H PRN PRN PRN Reason: Mild Pain (1-3)/Temp > 100.7 F Last Admin: 08/21/17 16:50 Dose: 650 mg Hydrocodone Bitart/Acetaminophen ([place] 5mg-325mg) 1 - 2 tablet PO Q6H PRN PRN PRN Reason: Mild-moderate pain (scale 1-5) Albuterol Sulfate (Ventolin Aerosols) 2.5 mg INHALATION Q2H PRN PRN PRN Reason: Shortness of breath/wheezing Albuterol Sulfate (Ventolin Aerosols) 2.5 mg INHALATION Q6HWA.RT [facility] Albuterol/Ipratropium (Duoneb) 3 ml INHALATION Q4HWA.RT [facility] Last Admin: 08/22/17 06:58 Dose: 3 ml Ascorbic Acid (Vitamin C) 500 mg PO DAILY [facility] Last Admin: 08/22/17 08:19 Dose: 500 mg Aspirin (Aspirin, Baby) 81 mg PO DAILY@0800 [facility] Last Admin: 08/22/17 08:18 Dose: 81 mg Atorvastatin Calcium (Lipitor) 10 mg PO QHS [facility] Last Admin: 08/21/17 22:31 Dose: 10 mg Bisacodyl (Dulcolax) 10 mg RECTAL DAILY [facility] Last Admin: 08/22/17 08:24 Dose: Not Given Budesonide (Pulmicort Aerosol) 0.5 mg INHALATION Q12H.RT [facility] Calcium Carbonate (Tums) 1,000 mg PO TIDCM [facility] Last Admin: 08/22/17 08:19 Dose: 1,000 mg Dextrose (D50w Syringe) 0 gm IV X1 PRN; Protocol PRN Reason: Hypoglycemia Docusate Sodium (Colace) 100 mg PO BID PRN PRN PRN Reason: constipation Last Admin: 08/21/17 10:11 Dose: 100 mg Glucagon () 1 mg IM .X1 PRN PRN Reason: Hypoglycemia Insulin Aspart (Novolog Flexpen (Bkc)) 15 units SC LUNCH [facility] Last Admin: 08/21/17 11:46 Dose: 15 units Insulin Aspart (Novolog Flexpen (Bkc)) 20 units SC BREAKFAST [facility] Last Admin: 08/22/17 09:17 Dose: 20 units Insulin Aspart (Novolog Flexpen (Bkc)) 35 units SC DINNER [facility] Last Admin: 08/21/17 17:07 Dose: 35 units Insulin Aspart (Novolog Flexpen (Bkc)) 0 units SC ACHS [facility] PRN Reason: Protocol Last Admin: 08/22/17 08:14 Dose: Not Given Insulin Detemir (Levemir (Bkc)) 20 units SC BID [facility] Last Admin: 08/22/17 09:18 Dose: 20 units Levothyroxine Sodium (Synthroid) 25 mcg PO DAILY@0600 [facility] Last Admin: 08/22/17 06:16 Dose: 25 mcg Nutritional Formula (Lactose Free) (Glucerna Shake) 120 ml PO 4X/DAY [facility] Last Admin: 08/22/17 08:26 Dose: 120 ml Ondansetron HCl (Zofran) 4 mg IV Q8H PRN PRN PRN Reason: NAUSEA Last Admin: 08/20/17 17:41 Dose: 4 mg Oxycodone HCl (Oxyir) 5 - 10 mg PO Q4H PRN PRN PRN Reason: SEVERE PAIN (6-10/10) Last Admin: 08/22/17 08:18 Dose: 5 mg Polyethylene Glycol (Miralax) 17 gm PO DAILY [facility] Last Admin: 08/22/17 08:19 Dose: 17 gm Rivaroxaban (Xarelto) 10 mg PO DAILY [facility] Last Admin: 08/22/17 08:20 Dose: 10 mg Sodium Biphosphate/Sodium Phosphate (Fleet Enema) 1 bottle RECTAL X1 PRN PRN Reason: If no BM after soapsuds enema Sodium Chloride () 5 - 30 ml IV UD PRN PRN Reason: SALINE FLUSH Last Admin: 08/20/17 17:41 Dose: 10 ml Zinc Sulfate (Zinc Sulfate) 220 mg PO DAILY [facility] Last Admin: 08/22/17 08:20 Dose: 220 mg Assessment/Plan Active and Suspected Problems Shortness of breath (Acute) Patient is a 71-year-old gentleman with multiple comorbidities admitted by the orthopedic service for revision of patella fracture underwent ORIF on 08/21/2017 1. S/P revision of patella fracture underwent ORIF on 08/21/2017 2. History of previous ischemic stroke with residual aphasia 3. CAD status post CABG 4. Diabetes mellitus type 2 5. Essential Hypertension-blood pressure controlled, home medications continued with dose adjustment as needed 6. Dyslipidemia-patient is on statin therapy, continued at home dose 7. History of right carotid endarterectomy 8. DVT prophylaxis on Xarelto Code Visit Inpatient E&M: 59630 Subs Hosp L2
[2017-08-22 11:03] VITALS: PULSE 100; RESP 19; O2SAT 96
[2017-08-22] MEDS: Acetaminophen 325 MG Tablet 650 MG PO (11:28)
[2017-08-22 11:31] LABS: Bedside Glucose 312 mg/dL (70-110)
[2017-08-22 11:32] VITALS: BP 116/57; PULSE 97; RESP 16; TEMP 36.6; O2SAT 100
[2017-08-22 15:39] VITALS: BP 124/55; PULSE 86; RESP 18; TEMP 36.4; O2SAT 95
--- NOTE | 2017-08-22 15:39 | CASEMGMT ---
Social Work Note Transfer Summary, medlist and scripts faxed to SNF. Copies on chart and originals in SNF packet. Transport setup through [facility] via cot at 17:30. Notified RN, SNF and RN to update pt's daughter, Pao. Plan: [facility] for rehab. Transport setup through [facility] via cot at 17:30. Carola Cam, AWNING HANGER SUPERVISOR INVESTMENT PROFESSIONAL
[2017-08-22 15:51] LABS: Bedside Glucose 327 mg/dL (70-110)
--- NOTE | 2017-08-22 16:01 | NURSING ---
CALLED REPORT TO ALIVIA RUIZ. ATTEMPTED TO CALL DAUGHTER PANKAJ OF TRANSFER BUT NO ANSWER WILL CONTINUE TO CALL DAUGHTER.
--- NOTE | 2017-08-22 17:00 | NURSING ---
ATTEMPTED TO CALL DAUGHTER PANKAJ SEVERAL TIMES WITH NO ANSWER. WILL CONTINUE TO TRY TO CALL
--- NOTE | 2017-08-22 18:14 | NURSING ---
notifed sylvia that pt being transferred back to [facility].
== END 2017-08-22 18:30 | disposition skilled nursing facility (03) ==
LOC: SDC 16:18
PROVIDERS: Internal Medicine; Physician Assistant; Admitting Provider Orthopaedic Surgery; Family Provider Family Medicine; PCP Family Medicine; Visit Provider Internal Medicine
PROC: (CPT 27524; principal; 2017-08-19 13:40)
DX: T84.228A Displacement of internal fixation device of other bones, initial encounter (principal); Y79.8 Miscellaneous orthopedic devices associated with adverse incidents, not elsewhere classified; Y83.8 Other surgical procedures as the cause of abnormal reaction of the patient, or of later complication, without mention of misadventure at the time of the procedure; E11.621 Type 2 diabetes mellitus with foot ulcer; E11.65 Type 2 diabetes mellitus with hyperglycemia; S82.031K Displaced transverse fracture of right patella, subsequent encounter for closed fracture with nonunion; S42.91XD Fracture of right shoulder girdle, part unspecified, subsequent encounter for fracture with routine healing; W19.XXXD Unspecified fall, subsequent encounter; E11.40 Type 2 diabetes mellitus with diabetic neuropathy, unspecified; I69.320 Aphasia following cerebral infarction; L89.620 Pressure ulcer of left heel, unstageable; K59.09 Other constipation; E78.5 Hyperlipidemia, unspecified; I10 Essential (primary) hypertension; G47.30 Sleep apnea, unspecified; Z95.1 Presence of aortocoronary bypass graft; Z79.899 Other long term (current) drug therapy; Z79.4 Long term (current) use of insulin; Z79.82 Long term (current) use of aspirin; Z79.01 Long term (current) use of anticoagulants; Z87.891 Personal history of nicotine dependence; Y93.K1 Activity, walking an animal; Z86.19 Personal history of other infectious and parasitic diseases; Z92.3 Personal history of irradiation
CPT/HCPCS: 01392; 27524; 64447; 71046; 73560; 76000; 80053; 82550; 82962; 83735; 84484; 85025; 85610; 93005; 94640; 96361; 96365; 96366; 96375; 97116; 97162; 97530; 97802; 99218; G0008; J7120; 90686; A4216; G0378; G0379; J2405

== ENCOUNTER 2017-08-31 19:00 | Inpatient (IN) | payer MEDICARE, SELFPAY ==
[2017-08-31 19:00] VITALS: BP 129/66; PULSE 89; RESP 16; TEMP 36.6; O2SAT 100; BMI 20.3
--- NOTE | 2017-08-31 19:34 | RAD_ITS ---
STUDY: X-RAY - RIGHT FOOT CLINICAL: Male, 71 years old. Diabetic sore TECHNIQUE: 2 view(s) of the foot. COMPARISON: None. FINDINGS: There is no evidence of fracture or dislocation. There are no significant degenerative changes. There are no radiodense foreign bodies. There is no definite radiographic evidence of osteomyelitis. If concern persists, consider further evaluation with MRI. RAD/Foot 2 Views IMPRESSION: No fracture or dislocation. No definite radiographic evidence of osteomyelitis. If concern persists, consider further evaluation with MRI. Electronically Signed: Edward Trivedi, at 20:22 EST Tel , Service support ,
--- NOTE | 2017-08-31 19:34 | RAD_ITS ---
STUDY: X-RAY - RIGHT KNEE REASON FOR EXAM: Male, 71 years old. Recent knee surgery. Infection. TECHNIQUE: 2 view(s) of the knee. COMPARISON: 08/19/2017 FINDINGS: There are postsurgical changes in the patella from fixation of a previous fracture There is a moderate suprapatellar joint effusion. There is no evidence of acute fracture or dislocation. There are no significant degenerative changes. There are no radiodense foreign bodies. There is no definite radiographic evidence of osteomyelitis. If concern persists, consider further evaluation with MRI. RAD/Knee 1 or 2 Views IMPRESSION: Postsurgical changes from fixation of a previous patellar fracture. No acute fracture or dislocation. Moderate suprapatellar joint effusion. There is no definite radiographic evidence of osteomyelitis. If concern persists, consider further evaluation with MRI. Electronically Signed: Edward Trivedi, at 20:27 EST Tel , Service support ,
--- NOTE | 2017-08-31 19:40 | ED.VISSUMM ---
- ER Visit Summary Date of Service: 08/31/17 Chief Complaint: Right knee pain History of Present Illness: The patient is a 71 M had a fall resulting in fractures of his right proximal humerus and his right knee, both of which required surgery. He subsequently required an additional surgery because his knee was not healing well, and he had that surgery 1.5-2 weeks ago. His knee has been wrapped and placed in an immobilizing knee splint, and he has been in a snf since then, discharged yesterday. 2 days ago, he saw orthopedics for the first time postoperatively, and the incision appear to be badly infected. It has been hurting him ever since. He and family states that no one in the snf unwrapped it or has looked at it. He was started on Bactrim 2 days ago. He was discharged yesterday, to home, where he lives alone and is unable to use his right upper extremity because of incomplete healing of his right shoulder as well. His family states that he is not so much pain in his right knee and he has only the ability to use his left leg and his left arm, and is not supposed to bend his right knee at all, but is unable to use an ambulatory assist device because of his right upper extremity and is very unstable and at risk of falling. The redness today appears to be worse around his knee than it was 2 days ago when he was seen at orthopedics and placed on antibiotics. He denies any fevers. He has peripheral neuropathy, but developed a bedsore on his right heel at the snf, he denies having any pain there. He is concerned about the appearance of that as well. Initially, patient has a history of having had a stroke years ago, with residual expressive aphasia from that, that is no different and he has no other new neurologic deficits. His blood sugar this morning was 503 and the family has been chasing it with NovoLog all day. He has been feeling malaised. Physical Examination: Vital signs are normal, he is afebrile. He is moaning in pain but in no distress and is able to talk and follow commands. He does have an expressive aphasia, I am able to discern some of his words, family states this is his baseline. The rest of his neurologic exam is normal. There is no signs of trauma but he does appear to have cellulitis at the anterior right knee surrounding surgical incision, pedro are intact there is no dehiscence and there is no expressible discharge or palpable abscess. All of it is warm and tender. There is no lymphangitis. He has very limited range of motion although he is not supposed to move it. At his calcaneus, there is a soft boggy bulla, it is not open but surrounding it is either purpuric discoloration or black/necrotic. There is no subcutaneous emphysema, and it appears more purple in color, and he is on Xarelto. It is nontender but he has peripheral neuropathy. His chest, cardiac exam, abdomen are benign except for a soft systolic cardiac murmur. Test Results: Labs are unremarkable, x-rays of the foot and calcaneus show no signs of osteomyelitis or free air/gas. X-ray of the right knee shows incomplete healing of patella fracture, hardware in place, no x-ray signs of soft tissue or bone infection. Emergency Department Course and Treatment: Patient was given morphine for his pain was significantly helped. His sugar is down to the 330 level, acetone is negative and his pH is 7.47, he is not in DKA. We will give him another dose of insulin, he was already given IV fluids, and admit. Discussed with Dr. Dayne Head for orthopedics as well as the hospitalist. Disposition: Admit Impression: Postoperative right knee cellulitis/soft tissue infection Right foot decubitus ulcer Hyperglycemia secondary to diabetes type 1 This note was generated with [employer] dictation software. It may contain incorrect words, spelling, and punctuation that were not noted in review of the chart prior to signing ED Disposition - Plan for ED Patient: Disposition: Acute Care Hospital [facility] Chief Complaint: Lower Extremity Injury Referrals: Hay Rhodes MD [Primary Care Provider] -
--- NOTE | 2017-08-31 19:48 | ED.DCSUM_ITS ---
- ER Visit Summary Date of Service: 08/31/17 Chief Complaint: Right knee pain History of Present Illness: The patient is a 71 M had a fall resulting in fractures of his right proximal humerus and his right knee, both of which required surgery. He subsequently required an additional surgery because his knee was not healing well, and he had that surgery 1.5-2 weeks ago. His knee has been wrapped and placed in an immobilizing knee splint, and he has been in a half-way since then, discharged yesterday. 2 days ago, he saw orthopedics for the first time postoperatively, and the incision appear to be badly infected. It has been hurting him ever since. He and family states that no one in the half-way unwrapped it or has looked at it. He was started on Bactrim 2 days ago. He was discharged yesterday, to home, where he lives alone and is unable to use his right upper extremity because of incomplete healing of his right shoulder as well. His family states that he is not so much pain in his right knee and he has only the ability to use his left leg and his left arm , and is not supposed to bend his right knee at all, but is unable to use an ambulatory assist device because of his right upper extremity and is very unstable and at risk of falling. The redness today appears to be worse around his knee than it was 2 days ago when he was seen at orthopedics and placed on antibiotics. He denies any fevers. He has peripheral neuropathy, but developed a bedsore on his right heel at the half-way, he denies having any pain there. He is concerned about the appearance of that as well. Initially, patient has a history of having had a stroke years ago, with residual expressive aphasia from that, that is no different and he has no other new neurologic deficits. His blood sugar this morning was 503 and the family has been chasing it with NovoLog all day. He has been feeling malaised. Physical Examination: Vital signs are normal, he is afebrile. He is moaning in pain but in no distress and is able to talk and follow commands. He does have an expressive aphasia, I am able to discern some of his words, family states this is his baseline. The rest of his neurologic exam is normal. There is no signs of trauma but he does appear to have cellulitis at the anterior right knee surrounding surgical incision, pedro are intact there is no dehiscence and there is no expressible discharge or palpable abscess. All of it is warm and tender. There is no lymphangitis. He has very limited range of motion although he is not supposed to move it. At his calcaneus, there is a soft boggy bulla, it is not open but surrounding it is either purpuric discoloration or black/necrotic. There is no subcutaneous emphysema, and it appears more purple in color, and he is on Xarelto. It is nontender but he has peripheral neuropathy. His chest, cardiac exam, abdomen are benign except for a soft systolic cardiac murmur. Test Results: Labs are unremarkable, x-rays of the foot and calcaneus show no signs of osteomyelitis or free air/gas. X-ray of the right knee shows incomplete healing of patella fracture, hardware in place, no x-ray signs of soft tissue or bone infection. Emergency Department Course and Treatment: Patient was given morphine for his pain was significantly helped. His sugar is down to the 330 level, acetone is negative and his pH is 7.47, he is not in DKA. We will give him another dose of insulin, he was already given IV fluids, and admit. Discussed with Dr. Dayne Head for orthopedics as well as the hospitalist. Disposition: Admit Impression: Postoperative right knee cellulitis/soft tissue infection Right foot decubitus ulcer Hyperglycemia secondary to diabetes type 1 This note was generated with [employer] dictation software. It may contain incorrect words, spelling, and punctuation that were not noted in review of the chart prior to signing ED Disposition - Plan for ED Patient: Disposition: Acute Care Hospital [facility] Chief Complaint: Lower Extremity Injury Referrals: Hay Rhodes MD [Primary Care Provider] -
--- NOTE | 2017-08-31 20:00 | RAD_ITS ---
STUDY: X-RAY - RIGHT CALCANEUS REASON FOR EXAM: Male, 71 years old. Diabetic sores TECHNIQUE: 2 view(s) of the calcaneus were obtained. COMPARISON: None. FINDINGS: There is no evidence of fracture or dislocation. There is no definite radiographic evidence of osteomyelitis. If concern persists, consider further evaluation with MRI. There are no significant degenerative changes. There are no radiodense foreign bodies. RAD/Calcaneus min 2 Views IMPRESSION: No fracture or dislocation. No definite radiographic evidence of osteomyelitis. If concern persists, consider further evaluation with MRI. Electronically Signed: Edward Trivedi, at 20:17 EST Tel , Service support ,
[2017-08-31 20:06] LABS: Blood Gas Specimen Type VEN; O2 Delivery Device Room Air; SITE OTHER; Time Given 1950; VBG BASE EXCESS 4 mmol/L (-1.0-3.5); VBG Bicarbonate 27 mmol/L (22-26); VBG Oxygen Content 28 mmol/L (23-33); VBG PO2 45 mmHg (25-40); VBG SO2 84 % (50-70); VBG pCO2 36.9 mmHg (41-51); VBG pH 7.48 (7.32-7.42)
[2017-08-31 20:20] LABS: Absolute Lymphocyte Count 2.08 X10^3/ul (0.83-4.51); Absolute Neutrophil Count 7.1 X10^3/uL (2.0-7.7); Basophil# 0.04 X10^3/uL; Basophil% 0.4 % (0-1); Eosinophil# 0.08 X10^3/uL; Eosinophils% 0.8 % (0-5); Hematocrit 32.4 % (40-54); Hemoglobin 10.3 g/dl (13.0-16.5); Lymphocyte # 2.08 X10^3/ul (4.0); Lymphocyte % 20.4 % (19-41); Mean Corp Hgb Conc 31.8 g/gl (32-36); Mean Corpuscular Hgb 29.4 pg (27.0-32.0); Mean Corpuscular Volume 92.6 fL (80-94); Mean Platelet Vol. 8.9 fl (6.2-12.0); Monocyte# 0.84 X10^3/uL; Monocyte% 8.2 % (0-10); Neutrophil # 7.11 X10^3/uL (2.7-7.7); Neutrophil % 69.8 % (47-70); Platelet Count 530 K/mm3 (150-450); RBC Distribution Width CV 13.6 % (11.6-14.6); RBC Distribution Width SD 45.4 fl (35.1-43.9); White Blood Count 10.2 K/mm3 (4.4-11.0)
[2017-08-31 20:21] LABS: POSITIVE COUNT NO; POSITIVE DIFFERENTIAL NO; POSITIVE MORPHOLOGY NO
[2017-08-31 20:22] LABS: Anion Gap 9 (5-15); BUN 18 mg/dL (7-18); BUN/Creat Ratio 21.4 RATIO (10-20); Calcium,Total 8.6 mg/dL (8.5-10.1); Chloride 100 mmol/L (98-107); Creatinine, Serum 0.84 mg/dL (0.70-1.30); EST Glomerular Filtration Rate 96 mL/min (>60); Est Glom Filt Rate - Afr Amer 116 mL/min (>60); Estimated Creatinine Clearance 79.87 ml/min; Glucose 322 mg/dL (74-106); Potassium 4.6 mmol/L (3.5-5.1); Sodium Level 136 mmol/L (136-145)
[2017-08-31 22:28] VITALS: BP 149/70; PULSE 90; RESP 20; O2SAT 99
--- NOTE | 2017-08-31 22:46 | PCM.HP.STD ---
Problem List (1) Shortness of breath Status: Acute (2) CAD (coronary artery disease) Status: Chronic Comment: expressive aphasia (3) CVA, old, aphasia Status: Chronic (4) Constipation Status: Chronic (5) Diabetes mellitus type 2 with complications, uncontrolled Status: Chronic (6) Diabetic neuropathy Status: Chronic History of Present Illness Date of Admission: 08/31/17 Chief Complaint: Cellulitis The patient is a 71 year old male w/ h/o right proximal humerus and right patellar fracture s/p surgery, brittle DMII, and HTN admitted for cellulitis. He had surgery to the right knee 2 weeks ago and was sent to a nursing facility. He saw ortho 2 days ago and he was started on bactrim for the cellulitis of the right knee. He was discharged from the nursing facility to home. However while at home, he is unable to care for himself because of the severe, constant pain of his right knee. Nothing appeared to make the pain better or worse. Pain was not associated with any other symptoms. Pain is dull-aching. He is also unable to move around because of his weak right shoulder. He lives by himself. He went to the ED for further evaluation. Past Medical History Past Medical History (Chronic Problems): Chronic Problems Diabetic neuropathy (Chronic) Diabetes mellitus type 2 with complications, uncontrolled (Chronic) Constipation (Chronic) CVA, old, aphasia (Chronic) CAD (coronary artery disease) (Chronic) expressive aphasia Allergies No Known Allergies Allergy (Verified 08/31/17 19:05) Home Medications: Ambulatory Orders Medication Instructions Recorded Aspirin [Aspirin, Baby] 81 mg PO DAILY@0800 08/02/17 Atorvastatin Calcium [Lipitor] 10 mg PO QHS 08/02/17 Insulin Aspart [Novolog Flexpen] 10 units SC LUNCH 08/02/17 Insulin Aspart [Novolog Flexpen] 20 units SC BREAKFAST 08/02/17 Insulin Aspart [Novolog Flexpen] 20 units SC DINNER 08/02/17 Insulin Detemir [Levemir FlexPen] 35 mg SQ BREAKFAST 08/02/17 Levothyroxine [Synthroid] 25 mcg PO DAILY 08/02/17 Polyethylene Glycol 3350 [Miralax] 17 gm PO DAILY packet 08/06/17 Rivaroxaban [Xarelto] 10 mg PO DAILY #14 tab 08/06/17 Arginine/Ascorbate Sod/Yan AC 1 each PO DAILY 08/16/17 [Arginaid Powder] Ascorbic Acid [Vitamin C] 500 mg PO DAILY 08/16/17 Docusate Sodium [Colace] 100 mg PO BID PRN PRN capsule 08/22/17 Insulin Aspart [Novolog Flexpen] See Protocol SC ACHS flexpen 08/22/17 Zinc Sulfate (50mg elemental) 220 mg PO DAILY capsule 08/22/17 [Zinc Sulfate] Acetaminophen [Tylenol Tablet] 350 mg PO TID 08/31/17 Surgical History: coronary bypass surgery, - - penile implant Psychiatric History: No pertinent psych hx Smoking Status: Former smoker - *Family History Maternal History Items: Stroke Paternal History Items: Heart Disease Review of Systems Constitutional: Denies: Chills, Fever, Weight Change HEENT: Denies: Head Aches, Sinus Congestion, Sinus Drainage Cardiovascular: Denies: Chest Pain, Palpitations Respiratory: Denies: Cough, Shortness of breath at rest, Sputum production Gastrointestinal: Denies: Abdominal Pain, Nausea, Vomiting Genitourinary: Denies: Dysuria Musculoskeletal: Denies: Joint Pain, Joint Tenderness Skin: Reports: Dryness, Rash, Wounds - Cellulitis of right knee Neurological: Denies: Numbness, Tingling, Focal weakness Psychiatric: Denies: Anxiety, Depression, Homicidal Ideations, Suicidal Ideations Hematologic/ Lymphatic: Denies: Easy Bruising, Easy Bleeding VTE Information - Inpt Only VTE Present on Admission: No VTE Mechan Device Prophylaxis: SCD's VTE Pharm Prophylaxis ordered?: Yes - Physical Exam General: Alert, Oriented x3, Cooperative HEENT: Atraumatic, PERRLA, EOMI, Normocephalic Neck: Supple, No JVD, Negative Carotid Bruits Lungs: Clear to auscultation, Normal air movement Cardiovascular: Regular rate, No murmurs Abdomen: Bowel Sounds Present, Soft, Non Tender Extremities: No edema, Capillary Refill Less than 3 Seconds Skin: No rashes, No breakdown, Incision - Cellulitis of right knee Musculoskeletal: No Tenderness to Palpation of Joints or Extremities Neurological: Cranial nerves II-XII grossly intact Psych/Mental Status: Normal Affect, Appropriate Vital Signs Temp Pulse Resp BP Pulse Ox 97.8 F 90 20 H 149/70 H 99 08/31/17 19:00 08/31/17 22:28 08/31/17 22:28 08/31/17 22:28 08/31/17 22:28 Oxygen Delivery Method Room Air Weight: 68.039 kg Body Mass Index (BMI) 20.3 Finger Stick Blood Glucose 189 Laboratory Tests Past 24 Hrs 08/31/17 08/31/17 08/31/17 19:50 19:50 19:50 WBC 10.2 RBC 3.50 L Hgb 10.3 L Hct 32.4 L MCV 92.6 MCH 29.4 MCHC 31.8 L RDW 13.6 RDW Differential 45.4 H Plt Count 530 H MPV 8.9 Immature Gran % (Auto) 0.400 Neut % (Auto) 69.8 Lymph % (Auto) 20.4 [place] % (Auto) 8.2 Eos % (Auto) 0.8 Baso % (Auto) 0.4 Absolute Neuts (auto) 7.1 Absolute Lymphs (auto) 2.08 Total Counted Not Reportable Specimen Type Sample Site VBG pH VBG pO2 VBG O2 Sat (Calc) VBG O2 Content VBG Base Excess POC Mix VBG pCO2 Pt Tmp O2 Delivery Device Blood Gas Notified Whom Blood Gas Notified Time Sodium 136 Potassium 4.6 Chloride 100 Carbon Dioxide 27.0 Anion Gap 9 BUN 18 Creatinine 0.84 Estim Creat Clear Calc 79.87 Est GFR (MDRD) Af Amer 116 Est GFR (MDRD) Non-Af 96 BUN/Creatinine Ratio 21.4 H Glucose 322 H Calcium 8.6 Acetone Level NEGATIVE 08/31/17 20:01 WBC RBC Hgb Hct MCV MCH MCHC RDW RDW Differential Plt Count MPV Immature Gran % (Auto) Neut % (Auto) Lymph % (Auto) [place] % (Auto) Eos % (Auto) Baso % (Auto) Absolute Neuts (auto) Absolute Lymphs (auto) Total Counted Specimen Type NAZANIN Sample Site OTHER VBG pH 7.48 H VBG pO2 45 H VBG O2 Sat (Calc) 84 H VBG O2 Content 28 VBG Base Excess 4 H POC Mix VBG pCO2 Pt Tmp 36.9 L O2 Delivery Device Room Air Blood Gas Notified Whom ED Blood Gas Notified Time 1950 Sodium Potassium Chloride Carbon Dioxide Anion Gap BUN Creatinine Estim Creat Clear Calc Est GFR (MDRD) Af Amer Est GFR (MDRD) Non-Af BUN/Creatinine Ratio Glucose Calcium Acetone Level Assessment/Plan 71 year old male w/ h/o right proximal humerus and right patellar fracture s/p surgery, brittle DMII, and HTN admitted for cellulitis. 1) Cellulitis of right knee: Failed outpt meds. Will start zosyn and vanco. Cultures pending. Consult ortho. 2) DMII: Resume home meds. Will also start sliding scale. He is a brittle DMII. 3) Decondition: Unlikely to be able to care for himself at home. He lives alone. Likely will need placement. Monitor. 4) Chronic pain: Pain controlled with opiates and tylenol. 5) Prophylaxis: SCD / Heparin.
[2017-08-31 22:51] VITALS: BP 139/64; PULSE 84; RESP 20; TEMP 36.8; O2SAT 96
[2017-08-31 23:21] VITALS: BMI 19.6; BMI 19.7
[2017-08-31 23:41] VITALS: BP 143/64; PULSE 91; RESP 18; TEMP 36.9; O2SAT 98
[2017-09-01] VITALS (7 sets, daily range): BP systolic 134–140; BP diastolic 69–74; PULSE 80–91; RESP 18; TEMP 36.6–36.7; O2SAT 96–98
[2017-09-01] MEDS: 0.9% Normal Saline 1,000 ML 100 ML IV ×3 (00:06→23:00)
[2017-09-01] MEDS: 0.9% NaCl Peripheral Flush Adult/Peds IV (00:07)
[2017-09-01 00:32] LABS: Bedside Glucose 291 mg/dL (70-110)
[2017-09-01] MEDS: Piperacil/Tazobactam 3.375 GM/50 ML ML IV ×4 (00:58→21:20)
[2017-09-01] MEDS: 0.9% NaCl IVPB Med Flush (250 mL) 15 ML IV (00:58)
[2017-09-01] MEDS: Levothyroxine 25 MCG TABLET PO (06:10)
--- NOTE | 2017-09-01 06:27 | NURSING ---
Dr Head from [facility] was consulted for pt post op R knee. He will be in to see patient today, and let Dr Dorman know to follow up with him on Saturday.
[2017-09-01 06:56] LABS: Bedside Glucose 254 mg/dL (70-110)
[2017-09-01] MEDS: Glucerna Shake 120 ML LIQUID PO ×4 (08:23→21:20)
[2017-09-01] MEDS: Polyethylene Glycol 3350 17 GM PACKET PO (08:25)
[2017-09-01] MEDS: Aspirin 81 MG TAB.CHEW PO (08:25)
[2017-09-01] MEDS: Ascorbic Acid 500 MG Tablet PO (08:27)
[2017-09-01] MEDS: Rivaroxaban 10 MG Tablet PO (10:19)
[2017-09-01] MEDS: Acetaminophen 325 MG Tablet 650 MG PO ×2 (10:20→17:00)
--- NOTE | 2017-09-01 11:55 | CON.PCM_ITS ---
Reason for Consult Date of Consultation: 09/01/17 History of Present Illness: The patient is a 71 year old Male patient of Dr. Dorman well known by him. Patient had sustained a right patella fracture and right shoulder fracture. Patient underwent open reduction internal fixation of these fractures on August 04, 2017. Noted to have patella displacement and was taken back to surgery on August 19 for repeat open reduction internal fixation of right patella. Patient was seen in the office on August 29 Dr. Dorman. Patient was noted to have some redness at the knee and mild drainage. Patient was started on oral antibiotic. Patient was to be wearing his knee immobilizer basically 24 7 except for skin care. He is to be weightbearing as tolerated with his knee immobilizer on the right lower extremity. Nonweightbearing on the right upper extremity. he was admitted the hospital yesterday to the hospitalist service due to concerns of right knee infection. he is also noted to have a second area of skin on the right heel without drainage or foul odor. Patient is sometimes difficult to understand. Previous stroke. [] Past Medical History Past Medical History (Chronic Problems): Chronic Problems Diabetic neuropathy (Chronic) Diabetes mellitus type 2 with complications, uncontrolled (Chronic) Constipation (Chronic) CVA, old, aphasia (Chronic) CAD (coronary artery disease) (Chronic) expressive aphasia Allergies No Known Allergies Allergy (Verified 08/31/17 19:05) Home Medications: Ambulatory Orders Medication Instructions Recorded Aspirin [Aspirin, Baby] 81 mg PO DAILY@0800 08/02/17 Atorvastatin Calcium [Lipitor] 10 mg PO QHS 08/02/17 Insulin Aspart [Novolog Flexpen] 10 units SC LUNCH 08/02/17 Insulin Aspart [Novolog Flexpen] 20 units SC BREAKFAST 08/02/17 Insulin Aspart [Novolog Flexpen] 20 units SC DINNER 08/02/17 Insulin Detemir [Levemir FlexPen] 35 mg SQ BREAKFAST 08/02/17 Levothyroxine [Synthroid] 25 mcg PO DAILY 08/02/17 Polyethylene Glycol 3350 [Miralax] 17 gm PO DAILY packet 08/06/17 Rivaroxaban [Xarelto] 10 mg PO DAILY #14 tab 08/06/17 Arginine/Ascorbate Sod/Yan AC 1 each PO DAILY 08/16/17 [Arginaid Powder] Ascorbic Acid [Vitamin C] 500 mg PO DAILY 08/16/17 Docusate Sodium [Colace] 100 mg PO BID PRN PRN capsule 08/22/17 Insulin Aspart [Novolog Flexpen] See Protocol SC ACHS flexpen 08/22/17 Zinc Sulfate (50mg elemental) 220 mg PO DAILY capsule 08/22/17 [Zinc Sulfate] Acetaminophen [Tylenol Tablet] 350 mg PO TID 08/31/17 Surgical History: coronary bypass surgery, - - penile implant, orif r patella x2 , r shoulder orif Psychiatric History: No pertinent psych hx Smoking Status: Former smoker - *Family History Maternal History Items: Stroke Paternal History Items: Heart Disease Objective: Patient is sitting in a recliner. Knee immobilizer is not currently on. Knee is bent about 20?. There is redness at the anterior knee. Patient consented for picture to be taken and sent to Dr. Dorman. This was done. Nurse was present for this. Patient has no calf pain or swelling bilaterally. Negative Homans sign bilaterally. No hip pain with motion. Knee was not stressed. He has a blackened area of skin at the right heel which is nonfluctuant without expressible drainage and without foul odor. Several pedro remain at knee incision. Knee incision is intact. Minimal serous drainage. No foul odor at the knee. This is mapped out. Right shoulder incision is intact. Right shoulder has no warmth or redness or signs of infection. The right shoulder is well aligned. Good active Motion of wrist and fingers. Sensation of the lower extremities normal for him. X Rays AP and lateral right knee reviewed showing 2 screws and 2 wires in position. 1 of the medial K wires has migrated distally some. Obvious signs of fracture displacement or screw displacement. X Rays of the right foot and ankle reviewed showing no obvious signs of osteomyelitis. Laboratory work and vital signs reviewed. Wound cultures right knee pending. Case discussed with Dr. Dorman and patient's nurse. - Physical Exam Vital Signs Temp Pulse Resp BP Pulse Ox 98.0 F 81 18 137/69 H 96 09/01/17 11:34 09/01/17 11:34 09/01/17 11:34 09/01/17 11:34 09/01/17 11:34 Oxygen Delivery Method Room Air Weight: 65.8 kg Body Mass Index (BMI) 19.6 Intake and Output for Last 24 Hours 02/09/18 02/10/18 02/11/18 23:59 23:59 23:59 Intake Total 1738 / 1738 Output Total 650 / 650 Balance 1088 / 1088 Laboratory Tests Past 24 Hrs 09/01/17 10:15 S.aureus Protein A PCR Pending MRSA (PCR) Pending POC Glucose 09/01/17 09/01/17 06:51 00:25 POC Glucose 254 H 291 H Assessment/Plan Redo ORIF right patella with anterior knee redness swelling cellulitis, possible surgical site infection. Continue IV Zosyn and vancomycin. Continue local wound care. Knee immobilizer at all times as per Dr. Dorman's orders. Recommend no knee flexion at this point. Recommend weightbearing as tolerated with his knee immobilizer on right lower extremity. Nonweightbearing on the right upper extremity. We will make him n.p.o. after midnight for possible surgical I&D tomorrow per Dr. Dorman. Right shoulder fracture without signs of infection Right heel ulcer-wound management team consulted Diabetes poorly controlled multiple medical problems, reported noncompliance with brace wear right knee
[2017-09-01 12:11] LABS: Bedside Glucose 274 mg/dL (70-110)
[2017-09-01 13:19] LABS: M R Staph aureus DNA By PCR Negative (Negative); Probe Check PASS; Specimen Processing Control PASS; Staph aureus DNA By PCR NEGATIVE (Negative)
--- NOTE | 2017-09-01 14:09 | PCM.PROGNOTE ---
<Erwin Sanders - Last Filed: 09/01/17 14:09> Subjective: Pt has difficulty to understand speech 2/2 a prior CVA. He has recently undergone a right shoulder repair, and a right knee repair on Aug 04 with revision of the knee on Aug 19, after which it became very painful to flex and swollen. He was placed on bactrim 3 days ago as an outpatient and has not improved. He was admitted as the wound appeared acutely infected. He complains of severe pain and inability to flex his knee. There is no drainage currently. There is a wound on his right heel as well. - Physical Exam General: Alert, Oriented x3, Cooperative HEENT: Atraumatic, PERRLA, EOMI, Normocephalic Neck: Supple, No JVD, Negative Carotid Bruits Lungs: Clear to auscultation, Normal air movement Cardiovascular: Regular rate, No murmurs Abdomen: Bowel Sounds Present, Soft, Non Tender Extremities: No edema, Capillary Refill Less than 3 Seconds Skin: No rashes, No breakdown Musculoskeletal: Tenderness, - - right patella is s/p procedure with pedro, erythema, tenderness, warmth to the touch. No lymphangitis proximally. Neurological: Cranial nerves II-XII grossly intact Psych/Mental Status: Normal Affect, Appropriate, Alert and oriented to time, place, person, mood and affect Vital Signs Temp Pulse Resp BP Pulse Ox 98.0 F 81 18 137/69 H 96 09/01/17 11:34 09/01/17 11:34 09/01/17 11:34 09/01/17 11:34 09/01/17 11:34 Oxygen Delivery Method Room Air Weight: 65.8 kg Body Mass Index (BMI) 19.6 Intake and Output for Last 24 Hours 08/30/17 08/31/17 09/01/17 23:59 23:59 23:59 Intake Total 1738 / 1738 Output Total 650 / 650 Balance 1088 / 1088 Laboratory Tests Past 24 Hrs 09/01/17 10:15 S.aureus Protein A PCR NEGATIVE MRSA (PCR) Negative POC Glucose 09/01/17 09/01/17 09/01/17 11:21 06:51 00:25 POC Glucose 274 H 254 H 291 H Assessment/Plan 1. Cellulitis and possible septic joint right knee s/p ORIF revision. On vanc and zosyn. Wound culture and MRSA screen. Blood cultures. No fever or leukocytosis. Dr. Head is on consult. He may undergo a surgical I/D tomorrow per Dr. Dorman. -He is on xarelto post op for DVT ppx. -no osteo on imaging -xray of the right knee shows moderate suprapatellar joint effusion. -films without osteo. 2. Prior ischemic CVA - significant aphasia 3. DMt2 - maintained on insulin regimen, will titrate to patient response. Pt is reportedly a brittle diabetic. 4. CAD - on asa, statin 5. Hypothyroidism - continue synthroid DVT ppx:xarelto DC planning: return to skilled This patient was seen by Erwin Sanders PA-C under the supervision of Doctor Glenn. <Sarah Beth Elizabeth E - Last Filed: 09/01/17 14:32> - Physical Exam Vital Signs Temp Pulse Resp BP Pulse Ox 98.0 F 81 18 137/69 H 96 09/01/17 11:34 09/01/17 11:34 09/01/17 11:34 09/01/17 11:34 09/01/17 11:34 Oxygen Delivery Method Room Air Weight: 145 lb 1.027 oz Body Mass Index (BMI) 19.6 Intake and Output for Last 24 Hours 08/30/17 08/31/17 09/01/17 23:59 23:59 23:59 Intake Total 1738 / 1738 Output Total 650 / 650 Balance 1088 / 1088 Laboratory Tests Past 24 Hrs 09/01/17 10:15 S.aureus Protein A PCR NEGATIVE MRSA (PCR) Negative POC Glucose 09/01/17 09/01/17 09/01/17 11:21 06:51 00:25 POC Glucose 274 H 254 H 291 H Assessment/Plan Hospitalist note: I am seeing this patient in conjunction with Erwin Sanders. I independently seen and examined the patient. Progress note above, laboratory data and imaging studies reviewed. I agree with above treatment plan. Seen and examined. He is still complaining of right knee pain. Denies fever or chills. Patient had open reduction and internal fixation of proximal right humeral fracture as well as right patella fracture on August 04, 2017. Postoperative course complicated by postoperative wound infection of the right patellar fracture. At this time, patient is afebrile, vital signs are stable. - Physical Exam General: Alert, Oriented x3, Cooperative, dysarthria. HEENT: Atraumatic, PERRLA, EOMI. Neck: Supple, No JVD, Negative Carotid Bruits, Trachea Midline, Thyroid Normal. Lungs: Diminished breath sounds bilateral, otherwise clear, No rhonchi, No wheeze, No rales. Cardiovascular: Regular rate, Regular Rhythm, Normal S1, Normal S2, PMI Normal. Abdomen: Bowel Sounds Present, Soft, Non Tender, Non-Distended, No Hepato-splenomegaly. Extremities: Surgical scar of the right shoulder is clean and dry, no evidence of infection. Right knee surgical incision is erythematous, swollen surrounded by erythema and there is minimal drainage. There is a gangrenous ulcer of the right heel. Skin: No rashes, surgical incision of the right knee is infected as above. There is a right heel ulcer with overlying gangrenous tissue. Neurological: Cranial nerves are intact, minimal right-sided hemiparesis, dysarthria. Vital Signs are stable. Assessment and plan: #1 postoperative wound infection of the right knee/possible septic arthritis of the right knee: In context of recent history of open reduction and internal fixation of right patellar fracture. Patient is on IV vancomycin and Zosyn. Vital signs are stable, afebrile, no leukocytosis. Blood and wound culture sent. Orthopedic surgery consulted. #2 right heel ulcer: With overlying gangrenous tissue. Wound care nurse consulted. #3 recent open reduction and internal fixation of right humeral fracture: Stable, surgical incision is clean and dry, no infection. #4 other chronic medical problems: History of CVA, type 2 diabetes mellitus, CAD, hypothyroidism: Continue current treatment as above. This note was generated with [employer] software. It may contain incorrect words, spelling, and punctuation that were not noted in checking the note before signing. Code Visit Inpatient E&M: 02280 Subs Hosp L2
--- NOTE | 2017-09-01 14:19 | PN_ITS ---
<Erwin Sanders - Last Filed: 09/01/17 14:09> Subjective: Pt has difficulty to understand speech 2/2 a prior CVA. He has recently undergone a right shoulder repair, and a right knee repair on Aug 04 with revision of the knee on Aug 19, after which it became very painful to flex and swollen. He was placed on bactrim 3 days ago as an outpatient and has not improved. He was admitted as the wound appeared acutely infected. He complains of severe pain and inability to flex his knee. There is no drainage currently. There is a wound on his right heel as well. - Physical Exam General: Alert, Oriented x3, Cooperative HEENT: Atraumatic, PERRLA, EOMI, Normocephalic Neck: Supple, No JVD, Negative Carotid Bruits Lungs: Clear to auscultation, Normal air movement Cardiovascular: Regular rate, No murmurs Abdomen: Bowel Sounds Present, Soft, Non Tender Extremities: No edema, Capillary Refill Less than 3 Seconds Skin: No rashes, No breakdown Musculoskeletal: Tenderness, - - right patella is s/p procedure with pedro, erythema, tenderness, warmth to the touch. No lymphangitis proximally. Neurological: Cranial nerves II-XII grossly intact Psych/Mental Status: Normal Affect, Appropriate, Alert and oriented to time, place, person, mood and affect Vital Signs Temp Pulse Resp BP Pulse Ox 98.0 F 81 18 137/69 H 96 09/01/17 11:34 09/01/17 11:34 09/01/17 11:34 09/01/17 11:34 09/01/17 11:34 Oxygen Delivery Method Room Air Weight: 65.8 kg Body Mass Index (BMI) 19.6 Intake and Output for Last 24 Hours 08/30/17 08/31/17 09/01/17 23:59 23:59 23:59 Intake Total 1738 / 1738 Output Total 650 / 650 Balance 1088 / 1088 Laboratory Tests Past 24 Hrs 09/01/17 10:15 S.aureus Protein A PCR NEGATIVE MRSA (PCR) Negative POC Glucose 09/01/17 09/01/17 09/01/17 11:21 06:51 00:25 POC Glucose 274 H 254 H 291 H Assessment/Plan 1. Cellulitis and possible septic joint right knee s/p ORIF revision. On vanc and zosyn. Wound culture and MRSA screen. Blood cultures. No fever or leukocytosis. Dr. Head is on consult. He may undergo a surgical I/D tomorrow per Dr. Dorman. -He is on xarelto post op for DVT ppx. -no osteo on imaging -xray of the right knee shows moderate suprapatellar joint effusion. -films without osteo. 2. Prior ischemic CVA - significant aphasia 3. DMt2 - maintained on insulin regimen, will titrate to patient response. Pt is reportedly a brittle diabetic. 4. CAD - on asa, statin 5. Hypothyroidism - continue synthroid DVT ppx:xarelto DC planning: return to skilled This patient was seen by Erwin Sanders PA-C under the supervision of Doctor Glenn. <Sarah Beth Elizabeth E - Last Filed: 09/01/17 14:32> - Physical Exam Vital Signs Temp Pulse Resp BP Pulse Ox 98.0 F 81 18 137/69 H 96 09/01/17 11:34 09/01/17 11:34 09/01/17 11:34 09/01/17 11:34 09/01/17 11:34 Oxygen Delivery Method Room Air Weight: 145 lb 1.027 oz Body Mass Index (BMI) 19.6 Intake and Output for Last 24 Hours 08/30/17 08/31/17 09/01/17 23:59 23:59 23:59 Intake Total 1738 / 1738 Output Total 650 / 650 Balance 1088 / 1088 Laboratory Tests Past 24 Hrs 09/01/17 10:15 S.aureus Protein A PCR NEGATIVE MRSA (PCR) Negative POC Glucose 09/01/17 09/01/17 09/01/17 11:21 06:51 00:25 POC Glucose 274 H 254 H 291 H Assessment/Plan Hospitalist note: I am seeing this patient in conjunction with Erwin Sanders. I independently seen and examined the patient. Progress note above, laboratory data and imaging studies reviewed. I agree with above treatment plan. Seen and examined. He is still complaining of right knee pain. Denies fever or chills. Patient had open reduction and internal fixation of proximal right humeral fracture as well as right patella fracture on August 04, 2017. Postoperative course complicated by postoperative wound infection of the right patellar fracture. At this time, patient is afebrile, vital signs are stable. - Physical Exam General: Alert, Oriented x3, Cooperative, dysarthria. HEENT: Atraumatic, PERRLA, EOMI. Neck: Supple, No JVD, Negative Carotid Bruits, Trachea Midline, Thyroid Normal. Lungs: Diminished breath sounds bilateral, otherwise clear, No rhonchi, No wheeze, No rales. Cardiovascular: Regular rate, Regular Rhythm, Normal S1, Normal S2, PMI Normal. Abdomen: Bowel Sounds Present, Soft, Non Tender, Non-Distended, No Hepato- splenomegaly. Extremities: Surgical scar of the right shoulder is clean and dry, no evidence of infection. Right knee surgical incision is erythematous, swollen surrounded by erythema and there is minimal drainage. There is a gangrenous ulcer of the right heel. Skin: No rashes, surgical incision of the right knee is infected as above. There is a right heel ulcer with overlying gangrenous tissue. Neurological: Cranial nerves are intact, minimal right-sided hemiparesis, dysarthria. Vital Signs are stable. Assessment and plan: #1 postoperative wound infection of the right knee/possible septic arthritis of the right knee: In context of recent history of open reduction and internal fixation of right patellar fracture. Patient is on IV vancomycin and Zosyn. Vital signs are stable, afebrile, no leukocytosis. Blood and wound culture sent. Orthopedic surgery consulted. #2 right heel ulcer: With overlying gangrenous tissue. Wound care nurse consulted. #3 recent open reduction and internal fixation of right humeral fracture: Stable , surgical incision is clean and dry, no infection. #4 other chronic medical problems: History of CVA, type 2 diabetes mellitus, CAD , hypothyroidism: Continue current treatment as above. This note was generated with [employer] software. It may contain incorrect words, spelling, and punctuation that were not noted in checking the note before signing. Code Visit Inpatient E&M: 72151 Subs Hosp L2
[2017-09-01 16:36] LABS: Bedside Glucose 150 mg/dL (70-110)
[2017-09-01] MEDS: Atorvastatin Calcium 10 MG Tablet PO (21:16)
[2017-09-01] MEDS: oxyCODONE 5 MG Tablet PO (21:16)
[2017-09-01 21:36] LABS: Bedside Glucose 68 mg/dL (70-110)
[2017-09-01] MEDS: Calcium Carbonate 500 MG Tablet 1000 MG PO (23:22)
[2017-09-02 03:00] VITALS: BP 145/74; PULSE 90; RESP 18; TEMP 36.5; O2SAT 96
[2017-09-02 03:30] VITALS: PULSE 90
[2017-09-02 05:34] LABS: Absolute Lymphocyte Count 2.03 X10^3/ul (0.83-4.51); Absolute Neutrophil Count 5.6 X10^3/uL (2.0-7.7); Anion Gap 7 (5-15); BUN 11 mg/dL (7-18); BUN/Creat Ratio 17.9 RATIO (10-20); Basophil# 0.03 X10^3/uL; Basophil% 0.4 % (0-1); Calcium,Total 8.2 mg/dL (8.5-10.1); Chloride 102 mmol/L (98-107); Creatinine, Serum 0.62 mg/dL (0.70-1.30); EST Glomerular Filtration Rate 138 mL/min (>60); Eosinophil# 0.22 X10^3/uL; Eosinophils% 2.6 % (0-5); Est Glom Filt Rate - Afr Amer 167 mL/min (>60); Estimated Creatinine Clearance 64.89 ml/min; Glucose 191 mg/dL (74-106); Hematocrit 32.5 % (40-54); Hemoglobin 10.3 g/dl (13.0-16.5); Lymphocyte # 2.03 X10^3/ul (4.0); Lymphocyte % 23.7 % (19-41); Mean Corp Hgb Conc 31.7 g/gl (32-36); Mean Corpuscular Hgb 29.7 pg (27.0-32.0); Mean Corpuscular Volume 93.7 fL (80-94); Mean Platelet Vol. 8.6 fl (6.2-12.0); Monocyte# 0.61 X10^3/uL; Monocyte% 7.1 % (0-10); Neutrophil # 5.62 X10^3/uL (2.7-7.7); Neutrophil % 65.5 % (47-70); Platelet Count 541 K/mm3 (150-450); Potassium 4.1 mmol/L (3.5-5.1); RBC Distribution Width CV 13.2 % (11.6-14.6); Red Blood Count 3.47 M/mm3 (4.6-6.2); Sodium Level 137 mmol/L (136-145); White Blood Count 8.6 K/mm3 (4.4-11.0)
[2017-09-02 05:43] LABS: POSITIVE COUNT NO; POSITIVE DIFFERENTIAL NO; POSITIVE MORPHOLOGY NO
[2017-09-02] MEDS: Levothyroxine 25 MCG TABLET PO (06:25)
[2017-09-02] MEDS: Piperacil/Tazobactam 3.375 GM/50 ML ML IV ×3 (06:25→21:06)
[2017-09-02 06:51] LABS: Bedside Glucose 218 mg/dL (70-110)
--- NOTE | 2017-09-02 07:14 | PN.ORTHO_ITS ---
Subjective: Patient doing fairly well today. He has pain in his shoulder as well as his knee. The pain in his shoulder is improving. He is doing exercises with the shoulder in bed. He denies any chest pain or shortness of breath Objective: Incision overlying his knee is approximated. There are some pedro that were maintained from my office visit. I did remove a couple of pedro today and investigated whether or not there is any abscess beneath the incision superficially. Suresh appeared to tolerate this fairly well. Scant amount of purulence was noted. Erythema does persist and it does appear to be improved compared to yesterday. It does appear that the IV antibiotics are helping and improving the erythema and infection - Physical Exam General: Alert Lungs: Normal air movement Cardiovascular: Regular rate Vital Signs Temp Pulse Resp BP Pulse Ox 97.7 F L 90 18 145/74 H 96 09/02/17 03:00 09/02/17 03:30 09/02/17 03:00 09/02/17 03:00 09/02/17 03:00 Oxygen Delivery Method Room Air Weight: 145 lb 1.027 oz Body Mass Index (BMI) 19.6 Intake and Output for Last 24 Hours 08/31/17 09/01/17 09/02/17 23:59 23:59 23:59 Intake Total 2717 / 2717 1856 / 1856 Output Total 850 / 850 1275 / 1275 Balance 1867 / 1867 581 / 581 Laboratory Tests Past 24 Hrs 09/01/17 09/02/17 09/02/17 10:15 05:00 05:00 WBC 8.6 RBC 3.47 L Hgb 10.3 L Hct 32.5 L MCV 93.7 MCH 29.7 MCHC 31.7 L RDW 13.2 RDW Differential 43.0 Plt Count 541 H MPV 8.6 Immature Gran % (Auto) 0.700 Neut % (Auto) 65.5 Lymph % (Auto) 23.7 [place] % (Auto) 7.1 Eos % (Auto) 2.6 Baso % (Auto) 0.4 Absolute Neuts (auto) 5.6 Absolute Lymphs (auto) 2.03 Total Counted Not Reportable Sodium 137 Potassium 4.1 Chloride 102 Carbon Dioxide 28.0 Anion Gap 7 BUN 11 Creatinine 0.62 L Estim Creat Clear Calc 64.89 Est GFR (MDRD) Af Amer 167 Est GFR (MDRD) Non-Af 138 BUN/Creatinine Ratio 17.9 Glucose 191 H Calcium 8.2 L S.aureus Protein A PCR NEGATIVE MRSA (PCR) Negative POC Glucose 09/02/17 09/01/17 09/01/17 06:32 21:24 16:31 POC Glucose 218 H 68 L 150 H 09/01/17 11:21 POC Glucose 274 H Assessment/Plan Superficial infection right knee status post revision ORIF patella Diabetes mellitus type 2 Based on erythema from Saturday and drainage from Saturday there appears to be improvement in the patient's knee and erythema. It does appear that the IV antibiotics are being tolerated well and he is responding nicely to the treatment. I do not feel that irrigation and debridement is necessary today and will continue to monitor this. In terms of the patient's function he is nonweightbearing in the right upper extremity with passive active and active assistive range of motion being okay. He is weightbearing as tolerated on his right lower extremity with knee immobilizer in place. The knee immobilizer should only be removed for wound care of the knee and changing the bandage and cleaning the extremity. The leg should be held and strict extension
[2017-09-02 08:28] VITALS: BP 148/72; PULSE 88; RESP 16; TEMP 36.7; O2SAT 97
[2017-09-02] MEDS: Glucerna Shake 120 ML LIQUID PO ×4 (08:35→21:04)
[2017-09-02] MEDS: Aspirin 81 MG TAB.CHEW PO (08:35)
[2017-09-02] MEDS: oxyCODONE 5 MG Tablet PO ×2 (08:35→21:06)
[2017-09-02] MEDS: Rivaroxaban 10 MG Tablet PO (08:35)
[2017-09-02] MEDS: Ascorbic Acid 500 MG Tablet PO (08:35)
[2017-09-02] MEDS: Polyethylene Glycol 3350 17 GM PACKET PO (08:36)
[2017-09-02] MEDS: 0.9% Normal Saline 1,000 ML 100 ML IV ×2 (09:25→21:05)
--- NOTE | 2017-09-02 10:24 | NURSING ---
wound photo: right knee
--- NOTE | 2017-09-02 10:25 | NURSING ---
wound photo: right heel
--- NOTE | 2017-09-02 10:40 | PCM.PROGNOTE ---
Subjective: Pt resting comfortably in bed upright with immobilizer in place R knee. He continues to have significant pain but feels he is improving. He denies fevers or chills overnight. He was seen by ortho who does not feel that I&D is needed at this time. - Physical Exam General: Alert, Oriented x3, Cooperative HEENT: Atraumatic, PERRLA, EOMI, Normocephalic Neck: Supple, No JVD, Negative Carotid Bruits Lungs: Clear to auscultation, Normal air movement Cardiovascular: Regular rate, No murmurs Abdomen: Bowel Sounds Present, Soft, Non Tender Extremities: No edema, Capillary Refill Less than 3 Seconds Skin: No rashes, No breakdown, - - i do not appreciate any proximal lymphangitis Musculoskeletal: No Tenderness to Palpation of Joints or Extremities, - - Right leg in immobilizer Neurological: Cranial nerves II-XII grossly intact Psych/Mental Status: Normal Affect, Appropriate, Alert and oriented to time, place, person, mood and affect Vital Signs Temp Pulse Resp BP Pulse Ox 98.1 F 88 16 148/72 H 97 09/02/17 08:28 09/02/17 08:28 09/02/17 08:28 09/02/17 08:28 09/02/17 08:28 Oxygen Delivery Method Room Air Weight: 65.8 kg Body Mass Index (BMI) 19.6 Intake and Output for Last 24 Hours 08/31/17 09/01/17 09/02/17 23:59 23:59 23:59 Intake Total 2717 / 2717 1856 / 1856 Output Total 850 / 850 1275 / 1275 Balance 1867 / 1867 581 / 581 Microbiology Past 72 Hours 09/01/17 10:15 Gram Stain - Final Wound - Knee Wound Culture - Preliminary GNR lactose software educator Coag Negative Staph Laboratory Tests Past 24 Hrs 09/01/17 09/02/17 09/02/17 10:15 05:00 05:00 WBC 8.6 RBC 3.47 L Hgb 10.3 L Hct 32.5 L MCV 93.7 MCH 29.7 MCHC 31.7 L RDW 13.2 RDW Differential 43.0 Plt Count 541 H MPV 8.6 Immature Gran % (Auto) 0.700 Neut % (Auto) 65.5 Lymph % (Auto) 23.7 [place] % (Auto) 7.1 Eos % (Auto) 2.6 Baso % (Auto) 0.4 Absolute Neuts (auto) 5.6 Absolute Lymphs (auto) 2.03 Total Counted Not Reportable Sodium 137 Potassium 4.1 Chloride 102 Carbon Dioxide 28.0 Anion Gap 7 BUN 11 Creatinine 0.62 L Estim Creat Clear Calc 64.89 Est GFR (MDRD) Af Amer 167 Est GFR (MDRD) Non-Af 138 BUN/Creatinine Ratio 17.9 Glucose 191 H Calcium 8.2 L S.aureus Protein A PCR NEGATIVE MRSA (PCR) Negative POC Glucose 09/02/17 09/01/17 09/01/17 06:32 21:24 16:31 POC Glucose 218 H 68 L 150 H 09/01/17 11:21 POC Glucose 274 H Assessment/Plan 1. Cellulitis and possible septic joint right knee s/p revision of right patellar fracture repair (ORIF). On vanc and zosyn. Wound culture pending, and MRSA/MSSA screen is negative. Blood cultures pending. No fever or leukocytosis. Eliana Head/Dandy on consult. No surgical intervention at this time per ortho. -Preliminary wound culture shows GNR lactose software educator and coag negative staph. Continue current Abx. -He is on xarelto post op for DVT ppx. -no osteo on imaging -xray of the right knee shows moderate suprapatellar joint effusion. -knee maintained in extension 2. Prior ischemic CVA - significant aphasia 3. DMt2 - fluctuant, low in the evening, decrease dinner dose, increase breakfast and lunch doses. 4. CAD - on asa, statin 5. Hypothyroidism - continue synthroid 6. HTN - trending mildly high. With significant pain will defer any changes for now. 7. He also has a Right shoulder fracture, weight bearing and exercise as directed by ortho. 8. Right heel decubitus ulcer - wound care nurse is consulted. 9. Debility 2/2 CVA, fractures, wounds - continue PTOT, will need to go back to [facility] when stable. DVT ppx: xarelto DC planning: return to skilled when appropriate. This patient was seen by Erwin Sanders PA-C under the supervision of Doctor Haim.
--- NOTE | 2017-09-02 11:23 | CASEMGMT ---
Social Work Note Placed call to [facility] and was on hold for 35 minutes. Spoke with pt's behavioral health case manager, Rosalie Cheema, who confirms that the pt's pending Medicaid number is [id number]. Will confirm with the pt and his daughters that the plan is to return to [facility] at discharge. SW to continue to follow and assist. Carola Cam, HEDIS MANAGER MAGNETIC RESONANCE TECHNOLOGIST
[2017-09-02 11:56] LABS: Vancomycin, Trough Level 6.3 ug/mL (5.0-15.0)
[2017-09-02 12:06] LABS: Bedside Glucose 238 mg/dL (70-110)
--- NOTE | 2017-09-02 13:57 | CASEMGMT ---
Addendum entered by Carola Cam 09/02/17 15:13: Social Work Note Placed call to Rosa at [facility] and left another . Placed call to [facility] and spoke with Emily as Holly had left for the day. Still reviewing and will notify SW. Carola Cam, HOWIE, HOGSHEAD ROLLER Original Note: Social Work Note Face to face with the pt and his daughter, Pao. Both known to SW from previous admissions. Pt and Pao express disinterest in returning to [facility] at discharge. Pao reports that she and her sister had discussed with the pt and would like SW to check into [facility] and [facility]. Third choice would be [facility]. Placed call to Eleni at [facility] and faxed initial referral. Placed call to Holly at [facility] and faxed initial referral for review. SW to continue to follow and assist with discharge planning. Plan: SNF pending acceptance. Carola Cam, HOWIE, HOGSHEAD ROLLER
[2017-09-02 14:50] VITALS: BP 133/69; PULSE 78; RESP 16; TEMP 36.7; O2SAT 99
[2017-09-02 16:35] LABS: Bedside Glucose 112 mg/dL (70-110)
--- NOTE | 2017-09-02 16:51 | CASEMGMT ---
Social Work Note Call from Emily at [facility] and Eleni at [facility] both stating that they would be able to accept the pt tomorrow. Daughter, Pao, not present in room. Placed call to pt's daughter, Anusha. Unable to leave and SW to continue to follow and assist with discharge planning. Carola Cam, CLINICAL DIETITIAN FUSION JUNCTURE GRINDER
--- NOTE | 2017-09-02 17:01 | CASEMGMT ---
Social Work Note Call back from Anusha who confirms that they would like to have placement at [facility]. Placed call to Rosa to notify. Anticipate discharge tomorrow, 09/03. HOWIE GironW
[2017-09-02 20:50] VITALS: BP 142/64; PULSE 88; RESP 14; TEMP 36.9; O2SAT 98
[2017-09-02] MEDS: Atorvastatin Calcium 10 MG Tablet PO (21:06)
[2017-09-02] MEDS: Calcium Carbonate 500 MG Tablet 1000 MG PO (21:06)
[2017-09-03] MEDS: Ondansetron 4 MG/2 ML Vial IV (01:13)
[2017-09-03 01:37] LABS: Bedside Glucose 157 mg/dL (70-110)
[2017-09-03 02:14] VITALS: BP 151/78; PULSE 97; RESP 18; TEMP 36.9; O2SAT 94
[2017-09-03] MEDS: Piperacil/Tazobactam 3.375 GM/50 ML ML IV ×2 (05:16→14:05)
[2017-09-03] MEDS: Levothyroxine 25 MCG TABLET PO (05:16)
[2017-09-03 05:47] LABS: Absolute Lymphocyte Count 1.74 X10^3/ul (0.83-4.51); Absolute Neutrophil Count 6.1 X10^3/uL (2.0-7.7); Basophil# 0.04 X10^3/uL; Basophil% 0.5 % (0-1); Eosinophil# 0.25 X10^3/uL; Eosinophils% 2.9 % (0-5); Hematocrit 32.2 % (40-54); Hemoglobin 10.2 g/dl (13.0-16.5); Lymphocyte # 1.74 X10^3/ul (4.0); Mean Corp Hgb Conc 31.7 g/gl (32-36); Mean Corpuscular Hgb 29.6 pg (27.0-32.0); Mean Corpuscular Volume 93.3 fL (80-94); Mean Platelet Vol. 8.6 fl (6.2-12.0); Monocyte# 0.55 X10^3/uL; Monocyte% 6.3 % (0-10); Neutrophil # 6.05 X10^3/uL (2.7-7.7); Neutrophil % 69.7 % (47-70); Platelet Count 552 K/mm3 (150-450); RBC Distribution Width CV 13.2 % (11.6-14.6); RBC Distribution Width SD 43.3 fl (35.1-43.9); Red Blood Count 3.45 M/mm3 (4.6-6.2); White Blood Count 8.7 K/mm3 (4.4-11.0)
[2017-09-03 05:50] LABS: POSITIVE COUNT NO; POSITIVE DIFFERENTIAL NO; POSITIVE MORPHOLOGY NO
[2017-09-03 06:01] LABS: Anion Gap 8 (5-15); BUN 12 mg/dL (7-18); BUN/Creat Ratio 19.5 RATIO (10-20); Calcium,Total 8.4 mg/dL (8.5-10.1); Chloride 100 mmol/L (98-107); Creatinine, Serum 0.62 mg/dL (0.70-1.30); EST Glomerular Filtration Rate 137 mL/min (>60); Est Glom Filt Rate - Afr Amer 166 mL/min (>60); Estimated Creatinine Clearance 64.89 ml/min; Glucose 383 mg/dL (74-106); Potassium 4.6 mmol/L (3.5-5.1); Sodium Level 134 mmol/L (136-145)
--- NOTE | 2017-09-03 07:40 | PCM.PN.ORT ---
Subjective: Patient sitting up in bed, pain well-managed. Patient states he is having heartburn. States Tums work for a short period of time then developed heartburn again. States he has minimal pain with his right knee. Denies chest pain, shortness breath, calf pain, nausea vomiting. No other complaints Objective: Dressing was clean dry intact. The incision appears to be dry, erythema has reduced considerably. There is no active drainage from the incision. There are several pedro remaining which is providing excellent wound edge approximation. No calf pain negative signs and symptoms of DVT. Vital signs labs within normal limits. Patient is afebrile. - Physical Exam General: Alert, Oriented x3, Cooperative HEENT: PERRLA Oral: Moist Mucosa Psych/Mental Status: Normal Affect, Alert and oriented to time, place, person, mood and affect Vital Signs Temp Pulse Resp BP Pulse Ox 98.5 F 97 18 151/78 H 94 09/03/17 02:14 09/03/17 02:14 09/03/17 02:14 09/03/17 02:14 09/03/17 02:14 Oxygen Delivery Method Room Air Weight: 65.8 kg Body Mass Index (BMI) 19.6 Intake and Output for Last 24 Hours 09/01/17 09/02/17 09/03/17 23:59 23:59 23:59 Intake Total 2717 / 2717 3824 / 3824 1613 / 1613 Output Total 850 / 850 2250 / 2250 1400 / 1400 Balance 1867 / 1867 1574 / 1574 213 / 213 Microbiology Past 72 Hours 09/01/17 10:15 Gram Stain - Final Wound - Knee Wound Culture - Preliminary GNR lactose consumer relations specialist Coag Negative Staph Laboratory Tests Past 24 Hrs 09/02/17 09/03/17 09/03/17 11:03 05:10 05:10 WBC 8.7 RBC 3.45 L Hgb 10.2 L Hct 32.2 L MCV 93.3 MCH 29.6 MCHC 31.7 L RDW 13.2 RDW Differential 43.3 Plt Count 552 H MPV 8.6 Immature Gran % (Auto) 0.600 Neut % (Auto) 69.7 Lymph % (Auto) 20.0 [place] % (Auto) 6.3 Eos % (Auto) 2.9 Baso % (Auto) 0.5 Absolute Neuts (auto) 6.1 Absolute Lymphs (auto) 1.74 Total Counted Not Reportable ESR Sodium 134 L Potassium 4.6 Chloride 100 Carbon Dioxide 26.0 Anion Gap 8 BUN 12 Creatinine 0.62 L Estim Creat Clear Calc 64.89 Est GFR (MDRD) Af Amer 166 Est GFR (MDRD) Non-Af 137 BUN/Creatinine Ratio 19.5 Glucose 383 H Calcium 8.4 L C-React Prot Ext Range Vancomycin Trough 6.3 09/03/17 09/03/17 05:10 05:10 WBC RBC Hgb Hct MCV MCH MCHC RDW RDW Differential Plt Count MPV Immature Gran % (Auto) Neut % (Auto) Lymph % (Auto) [place] % (Auto) Eos % (Auto) Baso % (Auto) Absolute Neuts (auto) Absolute Lymphs (auto) Total Counted ESR Pending Sodium Potassium Chloride Carbon Dioxide Anion Gap BUN Creatinine Estim Creat Clear Calc Est GFR (MDRD) Af Amer Est GFR (MDRD) Non-Af BUN/Creatinine Ratio Glucose Calcium C-React Prot Ext Range Pending Vancomycin Trough POC Glucose 09/02/17 09/02/17 09/02/17 21:08 16:32 11:56 POC Glucose 157 H 112 H 238 H Assessment/Plan Localized cellulitis of postop revision ORIF patella 1. Continue pain medications as prescribed 2. Xarelto 10 mg 1 p.o. daily for prophylactic DVT 3. Encourage incentive spirometry 4. Pepcid daily as prescribed 5. Continue antibiotics as directed by medicine 6. Medicine will continue to medically manage. 7. Possible discharge home tomorrow
[2017-09-03] MEDS: 0.9% NaCl Peripheral Flush Adult/Peds IV (07:41)
[2017-09-03] MEDS: 0.9% Normal Saline 1,000 ML 100 ML IV (07:45)
[2017-09-03 07:56] VITALS: BP 146/73; PULSE 89; RESP 16; TEMP 36.6; O2SAT 94
[2017-09-03 07:58] LABS: Erythrocyte Sedimentation Rate 38 mm/hr (0-20)
[2017-09-03 08:31] LABS: Bedside Glucose 424 mg/dL (70-110)
--- NOTE | 2017-09-03 08:39 | CASEMGMT ---
Social Work Note Physician notified that [facility] can accept the pt this date, via page, and is requesting a transfer around 13:00. SW to continue to follow and assist with discharge planning. Plan: [facility] for continued rehabilitation. Carola Cam, CUSTOMER SALES CONSULTANT, BLASTING CAP ASSEMBLER
[2017-09-03] MEDS: Aspirin 81 MG TAB.CHEW PO (10:00)
[2017-09-03] MEDS: Ascorbic Acid 500 MG Tablet PO (10:01)
[2017-09-03] MEDS: Famotidine 20 MG Tablet 40 MG PO (10:01)
[2017-09-03] MEDS: Rivaroxaban 10 MG Tablet PO (10:01)
[2017-09-03] MEDS: oxyCODONE 5 MG Tablet PO (11:03)
[2017-09-03 11:31] VITALS: BP 151/82; PULSE 98; RESP 16; TEMP 36.9; O2SAT 96
[2017-09-03 11:31] LABS: Bedside Glucose 265 mg/dL (70-110)
[2017-09-03 14:09] VITALS: BP 129/75; PULSE 101; RESP 16; TEMP 36.6; O2SAT 98
--- NOTE | 2017-09-03 14:45 | PCM.TXEXTCAR ---
- Diet 09/02/17 07:05 Diabetic [Diet: Calorie Controlled] Is pt able to select menu?: Yes How many daily calories?: 1800 calorie - Routine Orders/Code Status Suppository Type: Dulcolax 10mg Suppository Frequency: Daily PRN Routine Lab Work: CBC - 3 days, BMP - 3 days Code Status: Full Code - Wound(s) R knee Wound Type: Surgical Incision Dressing Change: Dry Sterile Dressing R heel Wound Type: Pressure Injury Dressing Change: Dry Sterile Dressing R mir Wound Type: Scabs - Therapies Physical Therapy: Eval and Treat Occupational Therapy: Eval and Treat - Problem/Diagnosis (1) Cellulitis Status: Acute Current Visit: Yes (2) GERD (gastroesophageal reflux disease) Status: Chronic Current Visit: Yes (3) Right humeral fracture Status: Chronic Current Visit: No (4) Right patella fracture Status: Chronic Current Visit: No (5) CAD (coronary artery disease) Status: Chronic Comment: expressive aphasia Current Visit: No (6) CVA, old, aphasia Status: Chronic Current Visit: No (7) Diabetes mellitus type 2 with complications, uncontrolled Status: Chronic Current Visit: No (8) Diabetic neuropathy Status: Chronic Current Visit: No - Allergies/Procedures Done in Hospital Allergies/Adverse Reactions: Allergies No Known Allergies Allergy (Verified 08/31/17 19:05) Procedures: None - Type of Care/Length of Stay Estimated LOS: Convalescent Care Less Than 30 days Type of Care Needed: Skilled Rehab Potential: Fair Prognosis: Fair - Additional Orders/Day of Discharge Day of Discharge: 09/03/17 - Dietary and Speech Recommendations Dietitian Recommendations/Changes: Recommend continue 1800 Calorie Controlled. Continue Glucerna Shake on medpass. Recommend check Hgb A1c - Follow Up Care Primary Care Physician: Hay Rhodes MD [Primary Care Provider] - Please follow up with your Primary Care Physician in: 2 weeks Please Follow Up With: Christiano Dorman DO When: 5-7 days
--- NOTE | 2017-09-03 14:48 | PCM.DC.SUM ---
Discharge Date and Diagnosis - Problem List Patient Problems: Active and Suspected Problems Cellulitis (Acute) Date of Admission: 08/31/17 Date of Discharge: 09/03/17 - Primary Discharge Diagnosis Active and Suspected Problems Cellulitis (Acute) of right knee incision s/p ORIF right patellar fracture 2/2 enterobacter cloacae GERD Right proximal humeral fracture s/p ORIF Right heel decubitus ulcer Normocytic anemia Brittle DMtype 2 Hx CAD HTN Chronic Aphasia 2/2 prior CVA. Debility - Secondary Discharge Diagnosis Chronic Problems GERD (gastroesophageal reflux disease) (Chronic) Diabetic neuropathy (Chronic) Diabetes mellitus type 2 with complications, uncontrolled (Chronic) Constipation (Chronic) CVA, old, aphasia (Chronic) CAD (coronary artery disease) (Chronic) expressive aphasia Right humeral fracture (Chronic) Right patella fracture (Chronic) Hospital Course and Treatment Imaging Results: RAD/Calcaneus min 2 Views IMPRESSION: No fracture or dislocation. No definite radiographic evidence of osteomyelitis. If concern persists, consider further evaluation with MRI. RAD/Knee 1 or 2 Views IMPRESSION: Postsurgical changes from fixation of a previous patellar fracture. No acute fracture or dislocation. Moderate suprapatellar joint effusion. There is no definite radiographic evidence of osteomyelitis. If concern persists, consider further evaluation with MRI. RAD/Foot 2 Views IMPRESSION: No fracture or dislocation. No definite radiographic evidence of osteomyelitis. If concern persists, consider further evaluation with MRI. Consultations 08/31/17 23:55 Consult: Onc/Wound/sheep clipper Routine Comment: Reason for Consult:: Cellulitis R knee 09/01/17 09:07 Consult: Onc/Wound/sheep clipper Routine Comment: R septic knee, right heel ulcer Operations: - - ORIF of right patellar fracture and right humerus fracture by Dr. Christiano Dorman on 08/04/2017 Procedures: None Summary of Care Provided: Physical exam on day of discharge: General: Resting comfortably NAD Psych: A/Ox3 normal affect HEENT: PEARRLA AT NC Neck: Supple NT CV: RRR no m/t/r/g/h Resp: CTA Abd: [id number] Soft NT no guarding or rigidity Ext: DP2+= no edema, knee in immobilizer. Heel bandaged. Skin: W/D normal turgor Lymph/Heme: No active bleeding or adenopathy Neuro: CN2-12 intact Hospital course: The patient is a 71 year old M who presented from group home to the ER after developing severe pain and erythema around his surgical incision from his right patellar fracture ORIF. He had no fever or white count, but did have erythema, warmth, and cellulitic changes. He was admitted and placed on vanc and zosyn and ortho was consulted. They came and evaluated the patient and decided no surgical intervention was necessary, and to continue antibiotics. Wound cultures were taken and grew Enterobacter cloacae, susceptible to levaquin. He was transitioned to PO levaquin for 5 more days to complete 7 days of abx therapy. He also had a right heel decubitus ulcer. He will need to continue wound care for both of these. Activity as directed by ortho - patient should remain nonweightbearing in the right upper extremity with passive and active assistive range of motion. Weightbearing as tolerated on his right lower extremity with knee immobilizer in place. The meet knee immobilizer should only be removed for wound care of the knee and changing the bandage and cleaning the extremity. The leg should be held and strict extension. The patient should continue Xarelto for DVT prophylaxis as directed by orthopedic surgery. Please continue wound care on his knee and ulcer on his right heel. He is a strict diabetic and needs to have his blood sugars monitored and to continue a diabetic diet with supplements as directed for wound healing. Prior to discharge he developed some acid reflux and was treated with Tums with significant relief, he was then started on Pepcid, and he should continue this. He also had some nausea and dry heaving associated with his opiate pain medications. I recommended continuing but limiting and using with caution the opiates, and also prescribed Zofran and Phenergan which she received here. The patient was discharged in stable condition to nursing home. This patient was seen by Erwin Sanders PA-C under the supervision of Doctor Haim. [] Discharge Diet: Low fat/ Low Cholesterol, 1800 Calorie Control Diet, 2000 mg Sodium Diet Discharge Activity: Return to Normal Activity Home Medications: Medications to take at Discharge Aspirin [Aspirin, Baby] 81 mg PO DAILY@0800 08/02/17 Atorvastatin Calcium [Lipitor] 10 mg PO QHS 08/02/17 Insulin Aspart [Novolog Flexpen] 10 units SC LUNCH 08/02/17 Insulin Aspart [Novolog Flexpen] 20 units SC BREAKFAST 08/02/17 Insulin Aspart [Novolog Flexpen] 20 units SC DINNER 08/02/17 Insulin Detemir [Levemir FlexPen] 35 mg SQ BREAKFAST 08/02/17 Levothyroxine [Synthroid] 25 mcg PO DAILY 08/02/17 Polyethylene Glycol 3350 [Miralax] 17 gm PO DAILY packet 08/06/17 Rivaroxaban [Xarelto] 10 mg PO DAILY #14 tab 08/06/17 Arginine/Ascorbate Sod/Yan AC [Arginaid Powder] 1 each PO DAILY 08/16/17 Ascorbic Acid [Vitamin C] 500 mg PO DAILY 08/16/17 Docusate Sodium [Colace] 100 mg PO BID PRN PRN capsule 08/22/17 Insulin Aspart [Novolog Flexpen] See Protocol SC ACHS flexpen 08/22/17 Zinc Sulfate (50mg elemental) [Zinc Sulfate] 220 mg PO DAILY capsule 08/22/17 Acetaminophen [Tylenol Tablet] 350 mg PO TID 08/31/17 Calcium Carbonate [Tums] 1,000 mg PO Q8H PRN PRN tablet 09/03/17 Famotidine [Pepcid] 20 mg PO BID tablet 09/03/17 Glucerna Shake 120 ml PO 4X/DAY liquid 09/03/17 Levofloxacin [Levaquin] 750 mg PO DAILY #5 tab 09/03/17 Ondansetron HCl [Zofran] 4 mg PO Q6H PRN #8 tablet 09/03/17 Oxycodone [Oxyir] 5 mg PO Q6H PRN PRN 2 Days #12 tablet 09/03/17 ProMETHAzine [Phenergan] 12.5 mg PO Q6H PRN PRN #8 tablet 09/03/17 Following Prescrptions Were Given to Patient: Levofloxacin [Levaquin] 750 mg PO DAILY #5 tab Ondansetron HCl [Zofran] 4 mg PO Q6H PRN #8 tablet PRN Reason: Nausea ProMETHAzine [Phenergan] 12.5 mg PO Q6H PRN PRN #8 tablet PRN Reason: Nausea Primary Care Physician: Hay Rhodes MD [Primary Care Provider] - Please follow up with your Primary Care Physician in: 2 weeks Please Follow Up With: Dandy,Christiano, DO When: 5-7 days Disposition: Detention facility Minutes spent on discharge:: 40 Patient Condition:: Stable Meaningful Use Info Meaningful Use Diagnoses (Choose all that apply): None applicable
--- NOTE | 2017-09-03 15:01 | DS.PCM_ITS ---
Discharge Date and Diagnosis - Problem List Patient Problems: Active and Suspected Problems Cellulitis (Acute) Date of Admission: 08/31/17 Date of Discharge: 09/03/17 - Primary Discharge Diagnosis Active and Suspected Problems Cellulitis (Acute) of right knee incision s/p ORIF right patellar fracture 2/2 enterobacter cloacae GERD Right proximal humeral fracture s/p ORIF Right heel decubitus ulcer Normocytic anemia Brittle DMtype 2 Hx CAD HTN Chronic Aphasia 2/2 prior CVA. Debility - Secondary Discharge Diagnosis Chronic Problems GERD (gastroesophageal reflux disease) (Chronic) Diabetic neuropathy (Chronic) Diabetes mellitus type 2 with complications, uncontrolled (Chronic) Constipation (Chronic) CVA, old, aphasia (Chronic) CAD (coronary artery disease) (Chronic) expressive aphasia Right humeral fracture (Chronic) Right patella fracture (Chronic) Hospital Course and Treatment Imaging Results: RAD/Calcaneus min 2 Views IMPRESSION: No fracture or dislocation. No definite radiographic evidence of osteomyelitis. If concern persists, consider further evaluation with MRI. RAD/Knee 1 or 2 Views IMPRESSION: Postsurgical changes from fixation of a previous patellar fracture. No acute fracture or dislocation. Moderate suprapatellar joint effusion. There is no definite radiographic evidence of osteomyelitis. If concern persists, consider further evaluation with MRI. RAD/Foot 2 Views IMPRESSION: No fracture or dislocation. No definite radiographic evidence of osteomyelitis. If concern persists, consider further evaluation with MRI. Consultations 08/31/17 23:55 Consult: Onc/Wound/hospital supervisor Routine Comment: Reason for Consult:: Cellulitis R knee 09/01/17 09:07 Consult: Onc/Wound/hospital supervisor Routine Comment: R septic knee, right heel ulcer Operations: - - ORIF of right patellar fracture and right humerus fracture by Dr. Christiano Dorman on 08/04/2017 Procedures: None Summary of Care Provided: Physical exam on day of discharge: General: Resting comfortably NAD Psych: A/Ox3 normal affect HEENT: PEARRLA AT NC Neck: Supple NT CV: RRR no m/t/r/g/h Resp: CTA Abd: [id number] Soft NT no guarding or rigidity Ext: DP2+= no edema, knee in immobilizer. Heel bandaged. Skin: W/D normal turgor Lymph/Heme: No active bleeding or adenopathy Neuro: CN2-12 intact Hospital course: The patient is a 71 year old M who presented from residential to the ER after developing severe pain and erythema around his surgical incision from his right patellar fracture ORIF. He had no fever or white count, but did have erythema, warmth, and cellulitic changes. He was admitted and placed on vanc and zosyn and ortho was consulted. They came and evaluated the patient and decided no surgical intervention was necessary, and to continue antibiotics. Wound cultures were taken and grew Enterobacter cloacae, susceptible to levaquin. He was transitioned to PO levaquin for 5 more days to complete 7 days of abx therapy. He also had a right heel decubitus ulcer. He will need to continue wound care for both of these. Activity as directed by ortho - patient should remain nonweightbearing in the right upper extremity with passive and active assistive range of motion. Weightbearing as tolerated on his right lower extremity with knee immobilizer in place. The meet knee immobilizer should only be removed for wound care of the knee and changing the bandage and cleaning the extremity. The leg should be held and strict extension. The patient should continue Xarelto for DVT prophylaxis as directed by orthopedic surgery. Please continue wound care on his knee and ulcer on his right heel. He is a strict diabetic and needs to have his blood sugars monitored and to continue a diabetic diet with supplements as directed for wound healing. Prior to discharge he developed some acid reflux and was treated with Tums with significant relief, he was then started on Pepcid, and he should continue this. He also had some nausea and dry heaving associated with his opiate pain medications. I recommended continuing but limiting and using with caution the opiates, and also prescribed Zofran and Phenergan which she received here. The patient was discharged in stable condition to detention. This patient was seen by Erwin Sanders PA-C under the supervision of Doctor Haim. [] Discharge Diet: Low fat/ Low Cholesterol, 1800 Calorie Control Diet, 2000 mg Sodium Diet Discharge Activity: Return to Normal Activity Home Medications: Medications to take at Discharge Aspirin [Aspirin, Baby] 81 mg PO DAILY@0800 08/02/17 Atorvastatin Calcium [Lipitor] 10 mg PO QHS 08/02/17 Insulin Aspart [Novolog Flexpen] 10 units SC LUNCH 08/02/17 Insulin Aspart [Novolog Flexpen] 20 units SC BREAKFAST 08/02/17 Insulin Aspart [Novolog Flexpen] 20 units SC DINNER 08/02/17 Insulin Detemir [Levemir FlexPen] 35 mg SQ BREAKFAST 08/02/17 Levothyroxine [Synthroid] 25 mcg PO DAILY 08/02/17 Polyethylene Glycol 3350 [Miralax] 17 gm PO DAILY packet 08/06/17 Rivaroxaban [Xarelto] 10 mg PO DAILY #14 tab 08/06/17 Arginine/Ascorbate Sod/Yan AC [Arginaid Powder] 1 each PO DAILY 08/16/17 Ascorbic Acid [Vitamin C] 500 mg PO DAILY 08/16/17 Docusate Sodium [Colace] 100 mg PO BID PRN PRN capsule 08/22/17 Insulin Aspart [Novolog Flexpen] See Protocol SC ACHS flexpen 08/22/17 Zinc Sulfate (50mg elemental) [Zinc Sulfate] 220 mg PO DAILY capsule 08/22/17 Acetaminophen [Tylenol Tablet] 350 mg PO TID 08/31/17 Calcium Carbonate [Tums] 1,000 mg PO Q8H PRN PRN tablet 09/03/17 Famotidine [Pepcid] 20 mg PO BID tablet 09/03/17 Glucerna Shake 120 ml PO 4X/DAY liquid 09/03/17 Levofloxacin [Levaquin] 750 mg PO DAILY #5 tab 09/03/17 Ondansetron HCl [Zofran] 4 mg PO Q6H PRN #8 tablet 09/03/17 Oxycodone [Oxyir] 5 mg PO Q6H PRN PRN 2 Days #12 tablet 09/03/17 ProMETHAzine [Phenergan] 12.5 mg PO Q6H PRN PRN #8 tablet 09/03/17 Following Prescrptions Were Given to Patient: Levofloxacin [Levaquin] 750 mg PO DAILY #5 tab Ondansetron HCl [Zofran] 4 mg PO Q6H PRN #8 tablet PRN Reason: Nausea ProMETHAzine [Phenergan] 12.5 mg PO Q6H PRN PRN #8 tablet PRN Reason: Nausea Primary Care Physician: Hay Rhodes MD [Primary Care Provider] - Please follow up with your Primary Care Physician in: 2 weeks Please Follow Up With: Dandy,Christiano, DO When: 5-7 days Disposition: [facility] facility Minutes spent on discharge:: 40 Patient Condition:: Stable Meaningful Use Info Meaningful Use Diagnoses (Choose all that apply): None applicable
--- NOTE | 2017-09-03 15:37 | CASEMGMT ---
Social Work Note Convalescent 7000 completed and submitted in the [facility]. Copies on chart and in [facility] packet. Transfer summary, medlist and scripts faxed to [facility]. Copies on chart and originals in [facility] packet. Transport setup through [facility] [place], [place] via cot at 17:30. Notified SNF, RN and daughter, Anusha. Plan: [facility] for rehabilitation. Convalescent submitted in [facility]. Transport setup through [facility] [place], [place] via cot at 17:30. Carola Cam, [employer]
[2017-09-03 16:26] LABS: Bedside Glucose 148 mg/dL (70-110)
== END 2017-09-03 17:43 | disposition skilled nursing facility (03) | DRG 863 ==
LOC: ED 19:48 → MS3 22:53
PROVIDERS: Hospitalist; Physician Assistant; Admitting Provider Internal Medicine; Emergency Provider Emergency Medicine; Family Provider Family Medicine; PCP Family Medicine; Visit Provider Internal Medicine
DX: T81.4XXA Infection following a procedure, initial encounter (principal); E11.40 Type 2 diabetes mellitus with diabetic neuropathy, unspecified; L89.610 Pressure ulcer of right heel, unstageable; L03.115 Cellulitis of right lower limb; I69.320 Aphasia following cerebral infarction; I25.10 Atherosclerotic heart disease of native coronary artery without angina pectoris; Z79.4 Long term (current) use of insulin; Z79.899 Other long term (current) drug therapy; Z87.891 Personal history of nicotine dependence; Z95.1 Presence of aortocoronary bypass graft; I10 Essential (primary) hypertension; S82.001D Unspecified fracture of right patella, subsequent encounter for closed fracture with routine healing; S42.301D Unspecified fracture of shaft of humerus, right arm, subsequent encounter for fracture with routine healing; W19.XXXD Unspecified fall, subsequent encounter; E11.65 Type 2 diabetes mellitus with hyperglycemia; E03.9 Hypothyroidism, unspecified
CPT/HCPCS: 36415; 73560; 73620; 73650; 80048; 80202; 82009; 82803; 82962; 85025; 85652; 86140; 87040; 87070; 87077; 87186; 87205; 87640; 97116; 97163; 97165; 97530; 97802; 99285; J7030; J7050; A4216; J2405

== ENCOUNTER 2017-10-29 10:19 | Outpatient (RCR) | payer MEDICARE, SELFPAY ==
[2017-10-29 10:54] VITALS: BP 134/71; PULSE 90; RESP 16; TEMP 36.9; BMI 20.3
== END 2017-11-18 23:59 ==
LOC: WC 10:19
PROVIDERS: Family Provider Preventive Medicine Occupational Medicine; PCP Preventive Medicine Occupational Medicine; Visit Provider Surgery
DX: Z09 Encounter for follow-up examination after completed treatment for conditions other than malignant neoplasm (principal)